=== PATIENT | female | born 1935 | race Caucasian/White ===

== ENCOUNTER 2016-11-29 13:28 | Observation (INO) ==
[2016-11-29] MEDS ORDERED: MAGNESIUM SULF RIDER 2 GM in PREMIX 1 EACH IV PRN (14:15)
[2016-11-29] MEDS ORDERED: ONDANSETRON 4 MG/2 ML VIAL IV PRN (14:15)
[2016-11-29] MEDS ORDERED: ACETAMINOPHEN 325 MG TABLET PO PRN (14:15)
[2016-11-29] MEDS ORDERED: MAGNESIUM SULF RIDER 4 GM in PREMIX 1 EACH IV PRN (14:15)
[2016-11-29] MEDS ORDERED: ZALEPLON 5 MG CAPSULE PO PRN (14:15)
[2016-11-29] MEDS ORDERED: DOCUSATE SODIUM 100 MG CAPSULE PO PRN (14:15)
[2016-11-29 16:23] LABS: Basophils # 0.1 10*3/uL (0.0-0.2); Basophils % 0.7 % (0.0-0.8); Eosinophils # 0.1 10*3/uL (0.0-0.87); Eosinophils % 1.4 % (0.00-10.9); Hematocrit 34.3 VOL% (35.7-47.0); Hemoglobin 11.4 GM/DL (12.0-16.0); Immature Granulocytes % 0.5 %; Immature Granulocytes Absolute 0.04 #; Lymphocytes % 13.1 % (21.3-54.2); Mean Corpuscular HGB Conc 33.2 GM/DL (32-36); Mean Corpuscular Hemoglobin 28 PG (27-34); Mean Corpuscular Volume 84.3 FL (87-102); Mean Platelet Volume 10.7 FL (9.6-12.0); Monocytes # 0.4 10*3/uL (0.11-0.8); Monocytes % 4.8 % (1.7-12.7); Neutrophils # 5.8 10*3/uL (1.4-7.4); Neutrophils % 79.5 % (38.7-73.9); Platelet Count 128 T/CUMM (130-400); Red Blood Count 4.07 MC/CUMM (3.8-5.5); White Blood Count 7.3 T/CUMM (4-12)
[2016-11-29 16:42] LABS: Albumin 3.4 G/DL (3.4-5.0); Bilirubin,Total 0.7 MG/DL (0.2-1.0); Calcium 8.3 MG/DL (8.5-10.1); Osmolality,Calculated 287.4 MOS/KG (273-304); Total Protein 6.6 G/DL (6.4-8.3)
--- NOTE | 2016-11-29 16:51 | Cardiology History & Physical ---
<Sharlene Arreola E - Last Filed: 11/29/16 17:00> Assessment and Plan - Time spent with patient Time spent with patient: Greater than 30 minutes (1) Diabetes mellitus Status: Chronic Assessment and plan: See plan of care listed below Current Visit: No (2) Coronary artery disease Status: Chronic Assessment and plan: See plan of care listed below Current Visit: No Qualifiers: Coronary Disease-Associated Artery/Lesion type: [place] artery [place] vs. transplanted heart: mo[place]gan heart (3) Dyslipidemia Status: Chronic Assessment and plan: See plan of care listed below Current Visit: No (4) Hypertension Status: Chronic Assessment and plan: See plan of care listed below Current Visit: No (5) Pulmonary hypertension Status: Chronic Assessment and plan: See plan of care listed below Current Visit: No (6) Status post insertion of drug-eluting stent into left anterior descending ( LAD) artery for coronary artery disease Status: Chronic Assessment and plan: See plan of care listed below Current Visit: No (8) Atrial fibrillation with rapid ventricular response Status: Resolved Assessment and plan: See plan of care listed below Current Visit: No History of Present Illness Chief complaint: Atrial fibrillation with rapid ventricular response History of present illness: 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 Levy Ms. Farias, 81-year-old female, routinely followed by Dr. Levy. She was last seen in cardiology clinic November 08, 2016. Risk factors include: Known coronary artery disease (status post PCI to the proximal LAD October 24, 2016 with ARELY), hypertension, dyslipidemia, sedentary lifestyle. She has a history of pulmonary hypertension, atrial flutter, anemia. She is status post permanent pacemaker implantation. She has been maintained on aspirin 81 mg daily, Plavix and Coumadin 4 mg orally each evening. Patient presented to her primary care provider's office today with complaints of worsening shortness of breath. She was found to be in atrial fibrillation with rapid ventricular response. She was given IV Cardizem and transferred to our facility. Her rhythm has now converted back to regular sinus rhythm with a controlled rate. Initially, after her stent in October 2016, she felt better for approximately 2 weeks. She states that her breathing improved for about 2 weeks but she is chronically short of breath with exertion and certainly this is worsened over the past week. This afternoon, she did experience chest discomfort described as tightness across the mid chest area without radiation. This was occurring when her heart rate was severely tachycardic and resolved once the rate was controlled. We have ordered cardiac biomarkers and will continue cycle accordingly. At this time, will stop her IV Cardizem 30 minutes after initiating oral diltiazem 30 mg 4 times daily. I will hold her Norvasc and JUAN inhibitor in favor of a rate controlling agent but hope to incorporate an JUAN inhibitor prior to discharge. I will hold her Coumadin tonight only and restart tomorrow depending on patient's progress. At one point, we consider the possibility of cardiac catheterization in her future but her symptoms have resolved once her rate has improved. Therefore, will hold tonight and hopefully be able to restart tomorrow. Await INR results. Continue with IV diuretics, strict I&O. ASSESSMENT/PLAN: 1. ATRIAL FIBRILLATION WITH RVR -paroxysmal. Now back in normal sinus rhythm. See plan of care listed above 2. KNOWN CAD S/P PCI LAD OCTOBER 24, 2016 -continue triple antiplatelet therapy. History of anemia we will monitor her hemoglobin and hematocrit closely. 3. HYPERTENSION -adequately controlled. 4. DYSLIPIDEMIA -continue lipid-lowering agent. Recent fasting lipid profile therefore we will not repeat during this hospital stay 5. DIABETES - sliding scale coverage 6. ANEMIA -monitor closely. Appears to be stable at this time. Home Medications Medication Instructions Recorded Confirmed Type Levothyroxine Tab [Synthroid Tab] 100 mcg PO DAILY 03/24/15 11/29/16 History Insulin Detemir [Levemir] 35 unit SUBCUT BEDTIME 09/12/16 11/29/16 History Mirabegron [Myrbetriq] 25 mg PO DAILY 09/12/16 11/29/16 History sitaGLIPtin [Januvia] 100 mg PO DAILY 09/12/16 11/29/16 History Warfarin [Coumadin] 4 mg PO DAILY 09/13/16 11/29/16 History Colestipol [Colestid] 2 gm PO BID 10/24/16 11/29/16 History Metoprolol Tartrate 25 mg PO BID 10/24/16 11/29/16 History Aspirin EC Tab 81 mg PO DAILY #30 tablet 10/26/16 11/29/16 Rx Atorvastatin [Lipitor] 40 mg PO BEDTIME #30 tablet 10/26/16 11/29/16 Rx Clopidogrel [Plavix] 75 mg PO DAILY #30 tablet 10/26/16 11/29/16 Rx Pantoprazole Tab [Protonix Tab] 40 mg PO DAILY #30 tablet 10/26/16 11/29/16 Rx Ferrous Sulfate 325 mg PO DAILY 11/29/16 11/29/16 History Magnesium Oxide 400 mg PO BID 11/29/16 11/29/16 History Furosemide Tab [Lasix Tab] 40 mg PO DAILY #30 tablet 11/30/16 Rx Glimepiride 4 mg PO BID 11/30/16 11/30/16 History Levofloxacin Tab [Levaquin Tab] 500 mg PO DAILY #6 tablet 11/30/16 Rx dilTIAZem HCl [Diltiazem ER (24 120 mg PO DAILY #30 capsule 11/30/16 Rx hr)] Allergies Allergy/AdvReac Type Severity Reaction Status Date / Time adhesive tape Allergy Intermediate RASH Verified 10/24/16 06:26 cephalexin [From Keflex] Allergy Diarrhea Verified 10/24/16 06:26 pioglitazone [From Actos] Allergy Diarrhea Verified 10/24/16 06:26 codeine AdvReac Intermediate Vomiting Verified 10/24/16 06:26 morphine AdvReac Intermediate Vomiting Verified 10/24/16 06:26 Review of systems: REVIEW OF SYSTEMS: - Constitutional Constitutional: Present: Fatigue. Absent: syncope, anorexia, night sweats - EENT Eyes: Absent: blurry vision, loss of vision, diplopia Ears: Absent: decreased hearing, ear pain, ear discharge - Cardiovascular Cardiovascular: Present: chest pain with higher heart rates. Chronic dyspnea on exertion, occasional edema. Denies palpitations. Absent: chest pain with deep breath, claudication - Respiratory Respiratory: Present: TRUJILLO, denied cough. Absent: wheezing, hemoptysis, change in phlegm color - Gastrointestinal Gastrointestinal: Denies constipation. Absent: abdominal pain, hematemesis, hematochezia, melena, change in bowel habits, nausea - Genitourinary Genitourinary: Absent: difficulty urinating, dysuria, urinary hesitancy, flank pain - Musculoskeletal Musculoskeletal: Present: back pain Absent: joint swelling, muscle cramps, muscle weakness - Neurological Neurological: Present: normal gait without frequent falls. Absent: dizziness, hemiparesis - Psychiatric Psychiatric: Absent: anxiety, depression, difficulty concentrating - Endocrine Endocrine: Present: fatigue. Absent: cold intolerance, heat intolerance, polyuria, polyphagia, polydipsia - Hematologic/Lymphatic Hematologic/Lymphatic: Present: easy bruising. Absent: easy bleeding -Integumentary Integumentary: Absent: lesions, rashes, skin breakdown Medical,Surgical,& Family Hx - Medical History Cardio: History of: Cardiac Dysrhythmia (atrial fib), CAD, Hypertension, Pacemaker (type unknown placed by Dr. Avelar at [facility]) Neurology: No history of: Seizures HEENT: History of: Ear Problem (hard of hearing), HEENT Problems (bilateral cataract) Endocrine: History of: Diabetes Mellitus (IDDM), Thyroid Disorder ( hypothyroidism) No history of: Diabetes Mellitus (NIDDM) Respiratory: History of: Bronchitis, Obstructive Sleep Apnea (doesnt use Cpap), Pulmonary Hypertension Genitourinary: History of: Bladder Problem (has had Bladder surgery), Recurring Urinary Tract Infections (frequent bladder infections), Problems (Bladder mesh) Gastrointestinal: History of: GERD, Hemorrhoids, GI Problems (diarrhea, dysphagia) Musculoskeletal: History of: Back/Neck Problems (arthritis) Hematology: History of: Anemia No history of: Blood Transfusion Reaction Reproductive: History of: Breast Cancer (right mastectomy-2004) Other: History of: Cancer (breast cancer) No history of: Anesthesia Reactions - Surgical History Cardiac Surgeries: Sugical HX of: Cardiac Catheterization Patient Denies: Carotid Endarterectomy HEENT Surgeries: Surgical HX of: Eye Surgery (cataracts), Thyroid Surgery (lt. thyroid) Patient denies: Carotid Endarterectomy Abdominal Surgeries: Surgical HX of: Appendectomy, Cholecystectomy, Colonoscopy , EGD Reproductive Surgeries: Surgical HX of;: Breast Surgery (rt. mastectomy), Genitourinary Surgery (bladder tack), Hysterectomy Orthopedic Surgeries: Patient denies;: Orthopedic Surgery - Family History Family History: Reports;: Family Cancer (father), Family Diabetes (grandmother) , Family Heart Disease (mother ([place]), Father), Family Hypertension (Father, Mother, Son), Family Stroke (Mother) - Social History Smoking Status: Never smoker Frequency of Alcohol Use: None Type of Drug Use: None Marital Status: Lives With:: Spouse Functional capacity: independent ambulation Cardiology Physical Exam - Constitutional Vitals: Vital Signs Temp Pulse Resp BP Pulse Ox 98.2 F 135 H 20 102/68 96 11/29/16 15:25 11/29/16 15:25 11/29/16 15:41 11/29/16 15:25 11/29/16 15:25 Intake and Output 11/29/16 11/29/16 11/29/16 07:59 15:59 23:59 Other: Weight 81.647 kg Patient Weight 11/29/16 23:59 Weight 81.647 kg Exam: General: [Appears well with no apparent distress.] [Pleasant and cooperative. ] [Appears comfortable.] HEENT: [PERRL, normocephalic, atraumatic. Mucous membranes moist. No jaundice noted. Conjunctiva moist and clear, sclerae anicteric] Neck: No obvious JVD/HJR, no thyromegaly or lymphadenopathy noted. No carotid bruit appreciated Cardiac: [Irregularly irregular in a trigeminal pattern] [No obvious murmur rub or gallop.] Lungs: [Relatively clear with prolonged end expiratory expression] Oxygen in use via nasal cannula Abdomen: Soft, bowel sounds normoactive. Nontender and nondistended. No abdominal bruit or thrill noted. No masses noted. Musculoskeletal: No fluid collection. Decreased range of motion is noted. Extremities: No clubbing, cyanosis noted. [TEDs intact. Trace bilateral lower extremity edema. Tender to touch] Upper extremity pulses 2+. Lower extremity pulses 2+. Capillary refill less than 3 seconds. Skin: No unusual lesions or rashes. No skin breakdown appreciated. Neuro: Awake, alert and oriented 3. Moves all extremities well without hemiparesis or paralysis. No essential tremor is appreciated. Result/EKG - Labs CBC & BMP: 11/29/16 15:47 11/29/16 15:44 Lab Results: I have reviewed the past 24 hour labs Labs: Laboratory Results - last 24 hr 11/29/16 15:47 WBC 7.3 RBC 4.07 Hgb 11.4 L Hct 34.3 L MCV 84.3 L MCH 28 MCHC 33.2 RDW 14.0 Plt Count 128 L MPV 10.7 Neut % (Auto) 79.5 H Lymph % (Auto) 13.1 L Gilchrist % (Auto) 4.8 Eos % (Auto) 1.4 Baso % (Auto) 0.7 Neut # (Auto) 5.8 Lymph # (Auto) 1.0 L Gilchrist # (Auto) 0.4 Eos # (Auto) 0.1 Baso # (Auto) 0.1 Immature Gran % 0.5 Nucleated RBC % 0.0 Immature Gran # 0.04 Nucleated RBCs # 0.00 - Diagnostic Findings Procedure: Chest x-ray: report reviewed by me - EKG EKG results: interpreted by me EKG shows: sinus rhythm <Hina Quiroga - Last Filed: 11/30/16 14:39> History of Present Illness History of present illness: I have personally interviewed and evaluated the patient, reviewed the chart and discussed medical decision-making with Practitioner Maxwell. I have read this note and agree with her documentation here in. Cardiology Physical Exam - Constitutional Vitals: Vital Signs Temp Pulse Resp BP Pulse Ox 97.0 F L 61 16 135/47 97 11/30/16 12:00 11/30/16 13:56 11/30/16 13:56 11/30/16 12:00 11/30/16 13:56 Intake and Output 11/29/16 11/30/16 11/30/16 23:59 07:59 15:59 Intake Total 240 / 240 240 / 240 Output Total 400 / 400 200 / 200 Balance -160 / -160 40 / 40 Intake: Oral 240 / 240 240 / 240 Output: Urine 400 / 400 200 / 200 Other: Weight 81.647 kg Patient Weight 11/30/16 23:59 Weight 81.647 kg Result/EKG - Labs CBC & BMP: 11/30/16 07:13 11/30/16 07:13 Labs: Laboratory Results - last 24 hr 11/29/16 11/29/16 11/29/16 15:44 15:44 15:44 WBC RBC Hgb Hct MCV MCH MCHC RDW Plt Count MPV Neut % (Auto) Lymph % (Auto) Gilchrist % (Auto) Eos % (Auto) Baso % (Auto) Neut # (Auto) Lymph # (Auto) Gilchrist # (Auto) Eos # (Auto) Baso # (Auto) Immature Gran % Nucleated RBC % Immature Gran # Nucleated RBCs # INR 2.0 PT Patient/Control Mix 22.3 D Sodium 140 Potassium 3.0 L Chloride 102 Carbon Dioxide 29 Anion Gap 12.0 BUN 10 Creatinine 0.80 GFR Calculation 76 BUN/Creatinine Ratio 12.00 Glucose 277 H POC Glucose Calculated Osmolality 287.4 Calcium 8.3 L Magnesium Total Bilirubin 0.70 AST 12 ALT 13 Alkaline Phosphatase 68 Total Creatine Kinase CK-MB (CK-2) Troponin I B-Natriuretic Peptide Total Protein 6.6 Albumin 3.4 Globulin 3.2 Albumin/Globulin Ratio 1.0 L Triglycerides 157 H Cholesterol 94 LDL Cholesterol 38.0 VLDL Cholesterol 31.4 HDL Cholesterol 42 Heart Disease Risk Ratio 2.24 Free T4 TSH 3rd Generation Urine Color Urine Appearance Urine pH Ur Specific [place] Urine Protein Urine Glucose (UA) Urine Ketones Urine Blood Urine Nitrate Urine Bilirubin Urine Urobilinogen Urine Leukocytes Urine WBC Ur Squamous Epith Cells Ur Culture Indicated? 11/29/16 11/29/16 11/29/16 15:44 15:45 15:47 WBC 7.3 RBC 4.07 Hgb 11.4 L Hct 34.3 L MCV 84.3 L MCH 28 MCHC 33.2 RDW 14.0 Plt Count 128 L MPV 10.7 Neut % (Auto) 79.5 H Lymph % (Auto) 13.1 L Gilchrist % (Auto) 4.8 Eos % (Auto) 1.4 Baso % (Auto) 0.7 Neut # (Auto) 5.8 Lymph # (Auto) 1.0 L Gilchrist # (Auto) 0.4 Eos # (Auto) 0.1 Baso # (Auto) 0.1 Immature Gran % 0.5 Nucleated RBC % 0.0 Immature Gran # 0.04 Nucleated RBCs # 0.00 INR PT Patient/Control Mix Sodium Potassium Chloride Carbon Dioxide Anion Gap BUN Creatinine GFR Calculation BUN/Creatinine Ratio Glucose POC Glucose Calculated Osmolality Calcium Magnesium Total Bilirubin AST ALT Alkaline Phosphatase Total Creatine Kinase 82 CK-MB (CK-2) 1.6 Troponin I 0.018 B-Natriuretic Peptide Total Protein Albumin Globulin Albumin/Globulin Ratio Triglycerides Cholesterol LDL Cholesterol VLDL Cholesterol HDL Cholesterol Heart Disease Risk Ratio Free T4 1.50 H TSH 3rd Generation 1.120 Urine Color Urine Appearance Urine pH Ur Specific [place] Urine Protein Urine Glucose (UA) Urine Ketones Urine Blood Urine Nitrate Urine Bilirubin Urine Urobilinogen Urine Leukocytes Urine WBC Ur Squamous Epith Cells Ur Culture Indicated? 11/29/16 11/29/16 11/29/16 15:47 19:00 19:15 WBC RBC Hgb Hct MCV MCH MCHC RDW Plt Count MPV Neut % (Auto) Lymph % (Auto) Gilchrist % (Auto) Eos % (Auto) Baso % (Auto) Neut # (Auto) Lymph # (Auto) Gilchrist # (Auto) Eos # (Auto) Baso # (Auto) Immature Gran % Nucleated RBC % Immature Gran # Nucleated RBCs # INR PT Patient/Control Mix Sodium Potassium Chloride Carbon Dioxide Anion Gap BUN Creatinine GFR Calculation BUN/Creatinine Ratio Glucose POC Glucose 330 H Calculated Osmolality Calcium Magnesium Total Bilirubin AST ALT Alkaline Phosphatase Total Creatine Kinase CK-MB (CK-2) Troponin I B-Natriuretic Peptide 425 H Total Protein Albumin Globulin Albumin/Globulin Ratio Triglycerides Cholesterol LDL Cholesterol VLDL Cholesterol HDL Cholesterol Heart Disease Risk Ratio Free T4 TSH 3rd Generation Urine Color Yellow Urine Appearance Clear Urine pH 7.0 Ur Specific [place] 1.021 Urine Protein Negative Urine Glucose (UA) >=500 Urine Ketones Negative Urine Blood Negative Urine Nitrate Negative Urine Bilirubin Negative Urine Urobilinogen < 2.0 H Urine Leukocytes Negative Urine WBC 1 Ur Squamous Epith Cells Occasional Ur Culture Indicated? Not indicated 11/29/16 11/30/16 11/30/16 22:01 01:02 01:19 WBC RBC Hgb Hct MCV MCH MCHC RDW Plt Count MPV Neut % (Auto) Lymph % (Auto) Gil[place] % (Auto) Eos % (Auto) Baso % (Auto) Neut # (Auto) Lymph # (Auto) [place] # (Auto) Eos # (Auto) Baso # (Auto) Immature Gran % Nucleated RBC % Immature Gran # Nucleated RBCs # INR PT Patient/Control Mix Sodium Potassium Chloride Carbon Dioxide Anion Gap BUN Creatinine GFR Calculation BUN/Creatinine Ratio Glucose POC Glucose 60 L 111 H Calculated Osmolality Calcium Magnesium Total Bilirubin AST ALT Alkaline Phosphatase Total Creatine Kinase 73 CK-MB (CK-2) 1.6 Troponin I 0.123 H D B-Natriuretic Peptide Total Protein Albumin Globulin Albumin/Globulin Ratio Triglycerides Cholesterol LDL Cholesterol VLDL Cholesterol HDL Cholesterol Heart Disease Risk Ratio Free T4 TSH 3rd Generation Urine Color Urine Appearance Urine pH Ur Specific [place] Urine Protein Urine Glucose (UA) Urine Ketones Urine Blood Urine Nitrate Urine Bilirubin Urine Urobilinogen Urine Leukocytes Urine WBC Ur Squamous Epith Cells Ur Culture Indicated? 11/30/16 11/30/16 11/30/16 07:13 07:13 07:13 WBC 7.2 RBC 3.83 Hgb 10.8 L Hct 33.0 L MCV 86.2 L MCH 28 MCHC 32.7 RDW 14.4 Plt Count 135 MPV 10.7 Neut % (Auto) 75.2 H Lymph % (Auto) 16.8 L Gilchrist % (Auto) 4.8 Eos % (Auto) 2.1 Baso % (Auto) 0.4 Neut # (Auto) 5.4 Lymph # (Auto) 1.2 L Gilchrist # (Auto) 0.3 Eos # (Auto) 0.2 Baso # (Auto) 0.0 Immature Gran % 0.7 Nucleated RBC % 0.0 Immature Gran # 0.05 Nucleated RBCs # 0.00 INR PT Patient/Control Mix Sodium 139 Potassium 4.2 Chloride 103 Carbon Dioxide 30 Anion Gap 10.2 BUN 9 Creatinine 0.70 GFR Calculation 89 BUN/Creatinine Ratio 12.00 Glucose 213 H POC Glucose Calculated Osmolality 281.5 Calcium 8.8 Magnesium Total Bilirubin 0.80 AST 10 ALT 12 L Alkaline Phosphatase 66 Total Creatine Kinase CK-MB (CK-2) Troponin I B-Natriuretic Peptide 435 H Total Protein 6.5 Albumin 3.3 L Globulin 3.2 Albumin/Globulin Ratio 1.0 L Triglycerides Cholesterol LDL Cholesterol VLDL Cholesterol HDL Cholesterol Heart Disease Risk Ratio Free T4 TSH 3rd Generation Urine Color Urine Appearance Urine pH Ur Specific [place] Urine Protein Urine Glucose (UA) Urine Ketones Urine Blood Urine Nitrate Urine Bilirubin Urine Urobilinogen Urine Leukocytes Urine WBC Ur Squamous Epith Cells Ur Culture Indicated? 11/30/16 11/30/16 11/30/16 07:13 07:13 07:13 WBC RBC Hgb Hct MCV MCH MCHC RDW Plt Count MPV Neut % (Auto) Lymph % (Auto) [place] % (Auto) Eos % (Auto) Baso % (Auto) Neut # (Auto) Lymph # (Auto) [place] # (Auto) Eos # (Auto) Baso # (Auto) Immature Gran % Nucleated RBC % Immature Gran # Nucleated RBCs # INR 1.9 PT Patient/Control Mix 21.1 Sodium 141 Potassium 4.2 Chloride 104 Carbon Dioxide 31 Anion Gap 10.2 BUN 9 Creatinine 0.70 GFR Calculation 89 BUN/Creatinine Ratio 12.00 Glucose 215 H POC Glucose Calculated Osmolality 285.3 Calcium 8.5 Magnesium 2.1 Total Bilirubin AST ALT Alkaline Phosphatase Total Creatine Kinase 51 D CK-MB (CK-2) 1.4 Troponin I 0.146 H B-Natriuretic Peptide Total Protein Albumin Globulin Albumin/Globulin Ratio Triglycerides Cholesterol LDL Cholesterol VLDL Cholesterol HDL Cholesterol Heart Disease Risk Ratio Free T4 TSH 3rd Generation Urine Color Urine Appearance Urine pH Ur Specific [place] Urine Protein Urine Glucose (UA) Urine Ketones Urine Blood Urine Nitrate Urine Bilirubin Urine Urobilinogen Urine Leukocytes Urine WBC Ur Squamous Epith Cells Ur Culture Indicated? 11/30/16 11/30/16 07:28 11:41 WBC RBC Hgb Hct MCV MCH MCHC RDW Plt Count MPV Neut % (Auto) Lymph % (Auto) [place] % (Auto) Eos % (Auto) Baso % (Auto) Neut # (Auto) Lymph # (Auto) [place] # (Auto) Eos # (Auto) Baso # (Auto) Immature Gran % Nucleated RBC % Immature Gran # Nucleated RBCs # INR PT Patient/Control Mix Sodium Potassium Chloride Carbon Dioxide Anion Gap BUN Creatinine GFR Calculation BUN/Creatinine Ratio Glucose POC Glucose 214 H 238 H Calculated Osmolality Calcium Magnesium Total Bilirubin AST ALT Alkaline Phosphatase Total Creatine Kinase CK-MB (CK-2) Troponin I B-Natriuretic Peptide Total Protein Albumin Globulin Albumin/Globulin Ratio Triglycerides Cholesterol LDL Cholesterol VLDL Cholesterol HDL Cholesterol Heart Disease Risk Ratio Free T4 TSH 3rd Generation Urine Color Urine Appearance Urine pH Ur Specific [place] Urine Protein Urine Glucose (UA) Urine Ketones Urine Blood Urine Nitrate Urine Bilirubin Urine Urobilinogen Urine Leukocytes Urine WBC Ur Squamous Epith Cells Ur Culture Indicated?
[2016-11-29 16:55] LABS: Risk Ratio 2.24; VLDL CHOLESTEROL 31.4 MG/DL
[2016-11-29] MEDS ORDERED: POTASSIUM CHLORIDE 20 MEQ TABLET PO ONE (16:58)
[2016-11-29] MEDS ORDERED: DEXTROSE 50% 25 GM/50 ML VIAL IV PRN (17:08)
[2016-11-29] MEDS ORDERED: GLUCAGON 1 MG VIAL IM PRN (17:08)
[2016-11-29 17:15] LABS: PT Patient Result 22.3 SECS
[2016-11-29] MEDS: glyBURIDE 5 MG TABLET PO SCH (17:24)
[2016-11-29] MEDS: DILTIAZEM 30 MG TABLET PO SCH ×2 (17:25→21:35)
[2016-11-29 17:26] LABS: Free T4 (Free Thyroxine) 1.5 NG/DL (0.76-1.46); Thyroid Stimulating Hormone 1.12 uIU/ml (0.358-3.74)
[2016-11-29 17:57] LABS: Troponin I Only 0.018 NG/ML (0.00-0.045)
--- NOTE | 2016-11-29 19:33 | Ultrasound Report ---
History: Leg pain Date: 11/29/2016 Study: Bilateral lower extremity color-flow venous Doppler study Comparison exam: No previous similar Color Doppler, wave form analysis, and compression analysis of the deep veins of both lower extremities from the common femoral vein level through the popliteal vein level shows that the veins are readily compressible. There is no abnormal intraluminal material to suggest thrombus. Waveform analysis is unremarkable. Ultrasound images were captured and archived Impression: No evidence of acute DVT PROCEDURE INTERPRETED AT [facility] DEPARTMENT OF RADIOLOGY Final Report Signed by: Dr. Patricia Chavez
[2016-11-29 19:41] LABS: Apearance,Urine CLEAR (Clear); Bilirubin,Urine Negative (Negative); Blood, Urine Negative (Negative); Glucose,Urine (UA) >=500 mg/dL (Negative); Ketones,Urine Negative (Negative); Nitrite,Urine Negative (Negative); Protein,Urine Negative; Squamous Epithelial Cell,Urine Occasional /HPF (0-10); Urine Color Yellow (Yellow); Urine Specific Gravity 1.021 (1.001-1.035); Urine Urobilinogen < 2.0 EU/DL (0.2-1.0); WBC,Urine 1 /HPF (0-6)
[2016-11-29] MEDS ORDERED: INSULIN GLARGINE 100 UNIT/ML SUBCUT SCH (21:00)
[2016-11-29] MEDS ORDERED: ATORVASTATIN 40 MG TABLET PO SCH (21:00)
[2016-11-29] MEDS: FUROSEMIDE 20 MG TABLET PO SCH (21:34)
[2016-11-29] MEDS: COLESTIPOL 1 GM TABLET PO SCH (21:34)
[2016-11-29] MEDS: INSULIN REGULAR 100 UNIT/ML SUBCUT SCH (21:35)
[2016-11-29] MEDS: METOPROLOL TARTRATE 25 MG TABLET PO SCH (21:35)
[2016-11-29] MEDS: MAGNESIUM OXIDE 400 MG TABLET PO SCH (21:35)
[2016-11-29 22:54] LABS: Troponin I Only 0.123 NG/ML (0.00-0.045)
[2016-11-30] MEDS ORDERED: LEVOTHYROXINE 100 MCG TABLET PO SCH (07:00)
--- NOTE | 2016-11-30 07:24 | XRay Report ---
XR chest 1V portable Indication: Shortness of breath Comparison: Chest x-ray 10/24/2016 Technique: Portable AP chest was performed. Findings: The heart size appears stable compared to prior study. Cardiac pacemaker is stable. The mediastinal contour and hilar structures demonstrate no significant abnormalities. Suggests minimal airspace opacification of the left costophrenic angle with stranding noted in the left cardiophrenic angle, stable. Lungs otherwise are clear. Bones and soft tissues demonstrate no evidence of acute pathology. Impression: 1. Minimally worsened parenchymal opacities within the left lung base have differential considerations including atelectasis as well as infection. Little overall change in the chest is demonstrated. 11/30/2016 7:20 AM PROCEDURE INTERPRETED AT [facility] DEPARTMENT OF RADIOLOGY Final Report Signed by: Dr. Saurabh Strange
[2016-11-30 07:36] LABS: Basophils % 0.4 % (0.0-0.8); Eosinophils # 0.2 10*3/uL (0.0-0.87); Eosinophils % 2.1 % (0.00-10.9); Hemoglobin 10.8 GM/DL (12.0-16.0); Immature Granulocytes % 0.7 %; Immature Granulocytes Absolute 0.05 #; Lymphocytes # 1.2 10*3/uL (1.4-4.0); Lymphocytes % 16.8 % (21.3-54.2); Mean Corpuscular HGB Conc 32.7 GM/DL (32-36); Mean Corpuscular Hemoglobin 28 PG (27-34); Mean Corpuscular Volume 86.2 FL (87-102); Mean Platelet Volume 10.7 FL (9.6-12.0); Monocytes # 0.3 10*3/uL (0.11-0.8); Monocytes % 4.8 % (1.7-12.7); Neutrophils # 5.4 10*3/uL (1.4-7.4); Neutrophils % 75.2 % (38.7-73.9); Platelet Count 135 T/CUMM (130-400); Red Blood Count 3.83 MC/CUMM (3.8-5.5); Red Cell Distribution Width 14.4 % (9.3-17.3); White Blood Count 7.2 T/CUMM (4-12)
[2016-11-30 07:50] LABS: INR 1.9
[2016-11-30 07:52] LABS: PT Patient Result 21.1 SECS
--- NOTE | 2016-11-30 08:01 | EKG Report ---
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
[2016-11-30 08:07] LABS: Calcium 8.5 MG/DL (8.5-10.1); Magnesium 2.1 MG/DL (1.8-2.4); Osmolality,Calculated 285.3 MOS/KG (273-304); Potassium 4.2 MMOL/L (3.5-5.1)
[2016-11-30 08:12] LABS: Troponin I Only 0.146 NG/ML (0.00-0.045)
[2016-11-30 08:19] LABS: Albumin 3.3 G/DL (3.4-5.0); Bilirubin,Total 0.8 MG/DL (0.2-1.0); Calcium 8.8 MG/DL (8.5-10.1); Osmolality,Calculated 281.5 MOS/KG (273-304); Potassium 4.2 MMOL/L (3.5-5.1); Total Protein 6.5 G/DL (6.4-8.3)
[2016-11-30] MEDS: COLESTIPOL 1 GM TABLET PO SCH (08:45)
[2016-11-30] MEDS: DILTIAZEM 30 MG TABLET PO SCH ×2 (08:45→14:31)
[2016-11-30] MEDS: FUROSEMIDE 20 MG TABLET PO SCH (08:45)
[2016-11-30] MEDS: METOPROLOL TARTRATE 25 MG TABLET PO SCH (08:46)
[2016-11-30] MEDS: MAGNESIUM OXIDE 400 MG TABLET PO SCH (08:46)
[2016-11-30] MEDS: INSULIN REGULAR 100 UNIT/ML SUBCUT SCH ×2 (08:46→12:10)
[2016-11-30] MEDS ORDERED: ASPIRIN EC 81 MG TABLET PO SCH (09:00)
[2016-11-30] MEDS ORDERED: GLIMEPIRIDE 4 MG TABLET PO SCH (09:00)
[2016-11-30] MEDS ORDERED: FERROUS SULFATE 325 MG TABLET PO SCH (09:00)
[2016-11-30] MEDS ORDERED: sitaGLIPtin 100 MG TABLET PO SCH (09:00)
[2016-11-30] MEDS ORDERED: PANTOPRAZOLE 40 MG TABLET PO SCH (09:00)
[2016-11-30] MEDS ORDERED: CLOPIDOGREL 75 MG TABLET PO SCH (09:00)
[2016-11-30] MEDS: glyBURIDE 5 MG TABLET PO SCH (10:01)
[2016-11-30] MEDS ORDERED: FUROSEMIDE 40 MG/4 ML VIAL IV SCH (10:33)
[2016-11-30] MEDS: LEVALBUTEROL 0.63 MG/3 ML NEB RESP TX SCH ×2 (10:39→13:56)
[2016-11-30] MEDS ORDERED: LEVOFLOXACIN INJ 500 MG in PREMIX 1 EACH IV SCH (11:00)
[2016-11-30 12:25] VITALS: BP 135/47
--- NOTE | 2016-11-30 14:04 | Discharge Summary ---
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 Farias, 81WF, arrived to the emergency apartment in transfer from an outlying facility. She sought emergency advice for worsening shortness of breath. She was found to be in atrial fibrillation with rapid ventricular response, 150 -170 bpm. Blood pressure was unstable and she was given fluid challenges while in the ER to improve her hypotension and tachycardia. Diltiazem infusion was initiated and her heart rate came under better control. She was hospitalized overnight for IV calcium channel caitlin. She spontaneously converted to normal sinus rhythm and was transitioned to oral calcium channel caitlin. She remained in normal sinus rhythm the remainder of the hospital stay. She has been maintained on aspirin 81 mg daily, Plavix and Coumadin 4 mg orally each evening. (INR 1.9) Chest x-ray revealed possible infectious process this morning though her white blood cell count was normal and she is afebrile. She received IV Levaquin is being and is being discharged home on oral Levaquin 6 days. She diuresed well after Lasix. She had some chest discomfort when her rates were higher but once her heart rate came under control she had no additional chest discomfort. Troponins remain flat. This morning, she has been ambulating without chest pain, heaviness or tightness. Shortness of breath has resolved. She is anxious for release home today. She is being discharged home in stable condition. She will be given a follow-up appointment with Dr. Rios in approximately 2-3 weeks with EKG. She is being given an appointment for lab at [facility] in 1 week to include the following: PT/INR, BMP, magnesium, CBC. Discharge medications include the following: Aspirin 81 mg orally daily Atorvastatin 40 mg orally each evening Clopidogrel 75 mg orally daily Luis 2 g p.o. twice daily Diltiazem ER 120 mg orally daily (new) Ferrous sulfate 325 mg orally daily Lasix 40 mg orally daily Levaquin 500 mg orally daily 6 days Levothyroxine 100 g orally daily Magnesium oxide 400 mg orally twice daily Metoprolol tartrate 25 mg orally twice daily Januvia 100 mg orally daily Warfarin 4 mg orally each evening She will resume her pre-admission diabetic regimen as well Patient's ARB was held in favor of rate controlling agent. - Time spent with patient Time with patient DS: Greater than 30 minutes Diagnosis - Discharge Diagnosis (1) Diabetes mellitus Status: Chronic (2) Coronary artery disease Status: Chronic (3) Dyslipidemia Status: Chronic (4) Hypertension Status: Chronic (5) Pulmonary hypertension Status: Chronic (6) Status post insertion of drug-eluting stent into left anterior descending ( LAD) artery for coronary artery disease Status: Chronic (7) Atrial fibrillation with rapid ventricular response Status: Chronic Specialty Discharge - Follow Up or Referrals Follow up with: Margret Rios DO [Physician] - 2 Weeks (PT/INR, BMP, Mg, CBC 1 week at [facility]. F/U Dr. Rios 2-3 weeks with EKG. ) Discharge Plan - Discharge Data Disposition: Disch To Home/Self Care Condition at Discharge: Stable Discharge Diet: heart healthy Activity: resume usual activities as tolerated Hygiene: no restrictions Weight Bearing at Discharge: full weight bearing Driving: not until seen by doctor Contact your physician if you experience:: fever over 101, Difficulty voiding, Redness or swelling, Nausea/Vomiting, Shortness of breath, Bleeding, pain uncontrolled by pain medications - Discharge Medications New Furosemide Tab [Lasix Tab] 40 mg PO DAILY #30 tablet Levofloxacin Tab [Levaquin Tab] 500 mg PO DAILY #6 tablet dilTIAZem HCl [Diltiazem ER (24 hr)] 120 mg PO DAILY #30 capsule Continue Levothyroxine Tab [Synthroid Tab] 100 mcg PO DAILY sitaGLIPtin [Januvia] 100 mg PO DAILY Metoprolol Tartrate 25 mg PO BID Clopidogrel [Plavix] 75 mg PO DAILY #30 tablet Atorvastatin [Lipitor] 40 mg PO BEDTIME #30 tablet Magnesium Oxide 400 mg PO BID Mirabegron [Myrbetriq] 25 mg PO DAILY Insulin Detemir [Levemir] 35 unit SUBCUT BEDTIME Warfarin [Coumadin] 4 mg PO DAILY Colestipol [Colestid] 2 gm PO BID Aspirin EC Tab 81 mg PO DAILY #30 tablet Pantoprazole Tab [Protonix Tab] 40 mg PO DAILY #30 tablet Ferrous Sulfate 325 mg PO DAILY Glimepiride 4 mg PO BID Discontinued Losartan [Cozaar] 25 mg PO DAILY #30 tablet amLODIPine [Norvasc] 2.5 mg PO DAILY #30 tablet Furosemide [Furosemide] 20 mg PO BID - Follow Up or Referral Follow Up: Margret Rios DO [Physician] - 2 Weeks (PT/INR, BMP, Mg, CBC 1 week at [facility]. F/U Dr. Rios 2-3 weeks with EKG. ) - Forms/Instructions Exam - Constitutional Vitals: Period Temp Pulse Resp BP Sys/Petty Pulse Ox Last 24 Hr 96.6 F-98.2 F 59-135 16-20 102-149/47-70 94-100 Exam: General: [Appears well with no apparent distress.] [Pleasant and cooperative. ] [Appears comfortable.] HEENT: [PERRL, normocephalic, atraumatic. Mucous membranes moist. No jaundice noted. Conjunctiva moist and clear, sclerae anicteric] Neck: No JVD/HJR, no thyromegaly or lymphadenopathy noted. No carotid bruit appreciated Cardiac: [Regular rate and rhythm.] [No obvious murmur rub or gallop.] . Lungs: [Clear to auscultation without accessory muscle use to assist the respiratory pattern.] Not requiring oxygen Abdomen: Soft, bowel sounds normoactive. Nontender and nondistended. No abdominal bruit or thrill noted. No masses noted. Musculoskeletal: No fluid collection. Decreased range of motion is noted. Extremities: No clubbing, cyanosis noted. [ No edema noted.] Upper extremity pulses 2+. Lower extremity pulses 2+. Capillary refill less than 3 seconds. Skin: No unusual lesions or rashes. No skin breakdown appreciated. Neuro: Awake, alert and oriented 3. Moves all extremities well without hemiparesis or paralysis. No essential tremor is appreciated. Discharge Results Labs on day of discharge: Labs from last 24 hours 11/30/16 11/30/16 11/30/16 11:41 07:28 07:13 WBC RBC Hgb Hct MCV MCH MCHC RDW Plt Count MPV Neut % (Auto) Lymph % (Auto) [place] % (Auto) Eos % (Auto) Baso % (Auto) Neut # (Auto) Lymph # (Auto) [place] # (Auto) Eos # (Auto) Baso # (Auto) Immature Gran % Nucleated RBC % Immature Gran # Nucleated RBCs # INR 1.9 PT Patient/Control Mix 21.1 Sodium Potassium Chloride Carbon Dioxide Anion Gap BUN Creatinine GFR Calculation BUN/Creatinine Ratio Glucose POC Glucose 238 H 214 H Calculated Osmolality Calcium Magnesium Total Bilirubin AST ALT Alkaline Phosphatase Total Creatine Kinase CK-MB (CK-2) Troponin I B-Natriuretic Peptide Total Protein Albumin Globulin Albumin/Globulin Ratio Triglycerides Cholesterol LDL Cholesterol VLDL Cholesterol HDL Cholesterol Heart Disease Risk Ratio Free T4 TSH 3rd Generation Urine Color Urine Appearance Urine pH Ur Specific Myton Urine Protein Urine Glucose (UA) Urine Ketones Urine Blood Urine Nitrate Urine Bilirubin Urine Urobilinogen Urine Leukocytes Urine WBC Ur Squamous Epith Cells Ur Culture Indicated? 11/30/16 11/30/16 11/30/16 07:13 07:13 07:13 WBC RBC Hgb Hct MCV MCH MCHC RDW Plt Count MPV Neut % (Auto) Lymph % (Auto) [place] % (Auto) Eos % (Auto) Baso % (Auto) Neut # (Auto) Lymph # (Auto) [place] # (Auto) Eos # (Auto) Baso # (Auto) Immature Gran % Nucleated RBC % Immature Gran # Nucleated RBCs # INR PT Patient/Control Mix Sodium 141 Potassium 4.2 Chloride 104 Carbon Dioxide 31 Anion Gap 10.2 BUN 9 Creatinine 0.70 GFR Calculation 89 BUN/Creatinine Ratio 12.00 Glucose 215 H POC Glucose Calculated Osmolality 285.3 Calcium 8.5 Magnesium 2.1 Total Bilirubin AST ALT Alkaline Phosphatase Total Creatine Kinase 51 D CK-MB (CK-2) 1.4 Troponin I 0.146 H B-Natriuretic Peptide 435 H Total Protein Albumin Globulin Albumin/Globulin Ratio Triglycerides Cholesterol LDL Cholesterol VLDL Cholesterol HDL Cholesterol Heart Disease Risk Ratio Free T4 TSH 3rd Generation Urine Color Urine Appearance Urine pH Ur Specific [place] Urine Protein Urine Glucose (UA) Urine Ketones Urine Blood Urine Nitrate Urine Bilirubin Urine Urobilinogen Urine Leukocytes Urine WBC Ur Squamous Epith Cells Ur Culture Indicated? 11/30/16 11/30/16 11/30/16 07:13 07:13 01:19 WBC 7.2 RBC 3.83 Hgb 10.8 L Hct 33.0 L MCV 86.2 L MCH 28 MCHC 32.7 RDW 14.4 Plt Count 135 MPV 10.7 Neut % (Auto) 75.2 H Lymph % (Auto) 16.8 L [place] % (Auto) 4.8 Eos % (Auto) 2.1 Baso % (Auto) 0.4 Neut # (Auto) 5.4 Lymph # (Auto) 1.2 L [place] # (Auto) 0.3 Eos # (Auto) 0.2 Baso # (Auto) 0.0 Immature Gran % 0.7 Nucleated RBC % 0.0 Immature Gran # 0.05 Nucleated RBCs # 0.00 INR PT Patient/Control Mix Sodium 139 Potassium 4.2 Chloride 103 Carbon Dioxide 30 Anion Gap 10.2 BUN 9 Creatinine 0.70 GFR Calculation 89 BUN/Creatinine Ratio 12.00 Glucose 213 H POC Glucose 111 H Calculated Osmolality 281.5 Calcium 8.8 Magnesium Total Bilirubin 0.80 AST 10 ALT 12 L Alkaline Phosphatase 66 Total Creatine Kinase CK-MB (CK-2) Troponin I B-Natriuretic Peptide Total Protein 6.5 Albumin 3.3 L Globulin 3.2 Albumin/Globulin Ratio 1.0 L Triglycerides Cholesterol LDL Cholesterol VLDL Cholesterol HDL Cholesterol Heart Disease Risk Ratio Free T4 TSH 3rd Generation Urine Color Urine Appearance Urine pH Ur Specific [place] Urine Protein Urine Glucose (UA) Urine Ketones Urine Blood Urine Nitrate Urine Bilirubin Urine Urobilinogen Urine Leukocytes Urine WBC Ur Squamous Epith Cells Ur Culture Indicated? 11/30/16 11/29/16 11/29/16 01:02 22:01 19:15 WBC RBC Hgb Hct MCV MCH MCHC RDW Plt Count MPV Neut % (Auto) Lymph % (Auto) [place] % (Auto) Eos % (Auto) Baso % (Auto) Neut # (Auto) Lymph # (Auto) [place] # (Auto) Eos # (Auto) Baso # (Auto) Immature Gran % Nucleated RBC % Immature Gran # Nucleated RBCs # INR PT Patient/Control Mix Sodium Potassium Chloride Carbon Dioxide Anion Gap BUN Creatinine GFR Calculation BUN/Creatinine Ratio Glucose POC Glucose 60 L Calculated Osmolality Calcium Magnesium Total Bilirubin AST ALT Alkaline Phosphatase Total Creatine Kinase 73 CK-MB (CK-2) 1.6 Troponin I 0.123 H D B-Natriuretic Peptide Total Protein Albumin Globulin Albumin/Globulin Ratio Triglycerides Cholesterol LDL Cholesterol VLDL Cholesterol HDL Cholesterol Heart Disease Risk Ratio Free T4 TSH 3rd Generation Urine Color Yellow Urine Appearance Clear Urine pH 7.0 Ur Specific [place] 1.021 Urine Protein Negative Urine Glucose (UA) >=500 Urine Ketones Negative Urine Blood Negative Urine Nitrate Negative Urine Bilirubin Negative Urine Urobilinogen < 2.0 H Urine Leukocytes Negative Urine WBC 1 Ur Squamous Epith Cells Occasional Ur Culture Indicated? Not indicated 11/29/16 11/29/16 11/29/16 19:00 15:47 15:47 WBC 7.3 RBC 4.07 Hgb 11.4 L Hct 34.3 L MCV 84.3 L MCH 28 MCHC 33.2 RDW 14.0 Plt Count 128 L MPV 10.7 Neut % (Auto) 79.5 H Lymph % (Auto) 13.1 L [place] % (Auto) 4.8 Eos % (Auto) 1.4 Baso % (Auto) 0.7 Neut # (Auto) 5.8 Lymph # (Auto) 1.0 L [place] # (Auto) 0.4 Eos # (Auto) 0.1 Baso # (Auto) 0.1 Immature Gran % 0.5 Nucleated RBC % 0.0 Immature Gran # 0.04 Nucleated RBCs # 0.00 INR PT Patient/Control Mix Sodium Potassium Chloride Carbon Dioxide Anion Gap BUN Creatinine GFR Calculation BUN/Creatinine Ratio Glucose POC Glucose 330 H Calculated Osmolality Calcium Magnesium Total Bilirubin AST ALT Alkaline Phosphatase Total Creatine Kinase CK-MB (CK-2) Troponin I B-Natriuretic Peptide 425 H Total Protein Albumin Globulin Albumin/Globulin Ratio Triglycerides Cholesterol LDL Cholesterol VLDL Cholesterol HDL Cholesterol Heart Disease Risk Ratio Free T4 TSH 3rd Generation Urine Color Urine Appearance Urine pH Ur Specific [place] Urine Protein Urine Glucose (UA) Urine Ketones Urine Blood Urine Nitrate Urine Bilirubin Urine Urobilinogen Urine Leukocytes Urine WBC Ur Squamous Epith Cells Ur Culture Indicated? 11/29/16 11/29/16 11/29/16 15:45 15:44 15:44 WBC RBC Hgb Hct MCV MCH MCHC RDW Plt Count MPV Neut % (Auto) Lymph % (Auto) [place] % (Auto) Eos % (Auto) Baso % (Auto) Neut # (Auto) Lymph # (Auto) [place] # (Auto) Eos # (Auto) Baso # (Auto) Immature Gran % Nucleated RBC % Immature Gran # Nucleated RBCs # INR 2.0 PT Patient/Control Mix 22.3 D Sodium Potassium Chloride Carbon Dioxide Anion Gap BUN Creatinine GFR Calculation BUN/Creatinine Ratio Glucose POC Glucose Calculated Osmolality Calcium Magnesium Total Bilirubin AST ALT Alkaline Phosphatase Total Creatine Kinase 82 CK-MB (CK-2) 1.6 Troponin I 0.018 B-Natriuretic Peptide Total Protein Albumin Globulin Albumin/Globulin Ratio Triglycerides Cholesterol LDL Cholesterol VLDL Cholesterol HDL Cholesterol Heart Disease Risk Ratio Free T4 1.50 H TSH 3rd Generation 1.120 Urine Color Urine Appearance Urine pH Ur Specific [place] Urine Protein Urine Glucose (UA) Urine Ketones Urine Blood Urine Nitrate Urine Bilirubin Urine Urobilinogen Urine Leukocytes Urine WBC Ur Squamous Epith Cells Ur Culture Indicated? 11/29/16 11/29/16 15:44 15:44 WBC RBC Hgb Hct MCV MCH MCHC RDW Plt Count MPV Neut % (Auto) Lymph % (Auto) [place] % (Auto) Eos % (Auto) Baso % (Auto) Neut # (Auto) Lymph # (Auto) [place] # (Auto) Eos # (Auto) Baso # (Auto) Immature Gran % Nucleated RBC % Immature Gran # Nucleated RBCs # INR PT Patient/Control Mix Sodium 140 Potassium 3.0 L Chloride 102 Carbon Dioxide 29 Anion Gap 12.0 BUN 10 Creatinine 0.80 GFR Calculation 76 BUN/Creatinine Ratio 12.00 Glucose 277 H POC Glucose Calculated Osmolality 287.4 Calcium 8.3 L Magnesium Total Bilirubin 0.70 AST 12 ALT 13 Alkaline Phosphatase 68 Total Creatine Kinase CK-MB (CK-2) Troponin I B-Natriuretic Peptide Total Protein 6.6 Albumin 3.4 Globulin 3.2 Albumin/Globulin Ratio 1.0 L Triglycerides 157 H Cholesterol 94 LDL Cholesterol 38.0 VLDL Cholesterol 31.4 HDL Cholesterol 42 Heart Disease Risk Ratio 2.24 Free T4 TSH 3rd Generation Urine Color Urine Appearance Urine pH Ur Specific [place] Urine Protein Urine Glucose (UA) Urine Ketones Urine Blood Urine Nitrate Urine Bilirubin Urine Urobilinogen Urine Leukocytes Urine WBC Ur Squamous Epith Cells Ur Culture Indicated? - Imaging and Cardiology Cardiology Procedure: report reviewed by me Procedure: Chest x-ray: report reviewed by me DS: Provider Date of admission: 11/29/16 15:11 Primary care physician: Santana Calles MD Attending physician on admission: Margret Rios DO Consults: 11/29/16 14:33 Consult to Pharmacy [CONS] Routine Reason for Pharmacy Consult: Adjust Meds Renal Funct Discharging clinician: Sharlene Arreola NP Expected date of discharge: 11/30/16
[2016-12-01] MEDS ORDERED: LEVOFLOXACIN 500 MG TABLET PO SCH (09:00)
[2016-12-01] MEDS ORDERED: FUROSEMIDE 40 MG TABLET PO SCH (09:00)
== END 2016-11-30 16:15 | disposition home or self-care (01) ==
LOC: N.TELEN
PROVIDERS: ADMIT Internal Medicine Cardiovascular Disease; ATTEND Internal Medicine Cardiovascular Disease

== ENCOUNTER 2016-12-27 20:52 | Inpatient (IN) ==
[2016-12-27] MEDS ORDERED: DILTIAZEM 50 MG/10 ML VIAL IV ONE (21:24)
[2016-12-27] MEDS ORDERED: DILTIAZEM 50 MG/10 ML VIAL IV STA (21:28)
[2016-12-27 21:37] LABS: Basophils % 0.5 % (0.0-0.8); Eosinophils # 0.2 10*3/uL (0.0-0.87); Eosinophils % 1.8 % (0.00-10.9); Hematocrit 37.7 VOL% (35.7-47.0); Hemoglobin 12.8 GM/DL (12.0-16.0); Immature Granulocytes % 0.6 %; Immature Granulocytes Absolute 0.05 #; Lymphocytes # 1.3 10*3/uL (1.4-4.0); Lymphocytes % 15.8 % (21.3-54.2); Mean Corpuscular Hemoglobin 28 PG (27-34); Mean Corpuscular Volume 82.5 FL (87-102); Mean Platelet Volume 10.4 FL (9.6-12.0); Monocytes # 0.5 10*3/uL (0.11-0.8); Monocytes % 6.4 % (1.7-12.7); Neutrophils # 6.3 10*3/uL (1.4-7.4); Neutrophils % 74.9 % (38.7-73.9); Platelet Count 131 T/CUMM (130-400); Red Blood Count 4.57 MC/CUMM (3.8-5.5); Red Cell Distribution Width 14.2 % (9.3-17.3); White Blood Count 8.4 T/CUMM (4-12)
--- NOTE | 2016-12-27 21:41 | Emergency Department Note ---
Arrival - Arrival Chief Complaint: Chest Pain Stated Complaint: chest pains ED Nursing Triage Note: Pt to triage with c/o chest pain that started about an hour ago, chest tightness radiating to her neck and across her chest. C/O SOB, denies any n/v. Pt states she took 1 nitro and had some relife. Mode of Arrival: Wheelchair Limitations: No Limitations Source: Patient, Family Time Seen by Provider: 12/27/16 21:27 - History of Present Illness HPI Narrative: This 81-year-old white female presents with a 1 hour history of abrupt onset of palpitations associated with left-sided chest pain radiating to the neck and associated with shortness of breath. The patient took one nitro with minimal improvement and proceeded to the ER. Here in triage she demonstrated SVT in the 140s and was immediately brought back. At this time she denies any shortness of breath, diaphoresis, nausea, or court vomiting. Onset (ago): hour(s) (Patient presents 1 hour post onset of in-stent) Allergies/Adverse Reactions: Allergies Allergy/AdvReac Type Severity Reaction Status Date / Time adhesive tape Allergy Intermediate RASH Verified 12/27/16 21:20 cephalexin [From Keflex] Allergy Diarrhea Verified 12/27/16 21:20 pioglitazone [From Actos] Allergy Diarrhea Verified 12/27/16 21:20 codeine AdvReac Intermediate Vomiting Verified 12/27/16 21:20 morphine AdvReac Intermediate Vomiting Verified 12/27/16 21:20 Home Medications: Home Medications Medication Instructions Recorded Confirmed Type Levothyroxine Tab [Synthroid Tab] 100 mcg PO DAILY 03/24/15 11/29/16 History Insulin Detemir [Levemir] 35 unit SUBCUT BEDTIME 09/12/16 11/29/16 History Mirabegron [Myrbetriq] 25 mg PO DAILY 09/12/16 11/29/16 History sitaGLIPtin [Januvia] 100 mg PO DAILY 09/12/16 11/29/16 History Warfarin [Coumadin] 4 mg PO DAILY 09/13/16 11/29/16 History Colestipol [Colestid] 2 gm PO BID 10/24/16 11/29/16 History Metoprolol Tartrate 25 mg PO BID 10/24/16 11/29/16 History Aspirin EC Tab 81 mg PO DAILY #30 tablet 10/26/16 11/29/16 Rx Atorvastatin [Lipitor] 40 mg PO BEDTIME #30 tablet 10/26/16 11/29/16 Rx Clopidogrel [Plavix] 75 mg PO DAILY #30 tablet 10/26/16 11/29/16 Rx Pantoprazole Tab [Protonix Tab] 40 mg PO DAILY #30 tablet 10/26/16 11/29/16 Rx Ferrous Sulfate 325 mg PO DAILY 11/29/16 11/29/16 History Magnesium Oxide 400 mg PO BID 11/29/16 11/29/16 History Furosemide Tab [Lasix Tab] 40 mg PO DAILY #30 tablet 11/30/16 Rx Glimepiride 4 mg PO BID 11/30/16 11/30/16 History Levofloxacin Tab [Levaquin Tab] 500 mg PO DAILY #6 tablet 11/30/16 Rx dilTIAZem HCl [Diltiazem ER (24 120 mg PO DAILY #30 capsule 11/30/16 Rx hr)] Review of System - Review of System 12 point system: reviewed and no additional remarkable complaints except as stated - Review of System Constitutional: Present: as per HPI Respiratory: Present: as per HPI Cardiovascular: Present: as per HPI Gastrointestinal: Present: as per HPI Medical,Surgical,& Family Hx - Medical History Cardio: History of: Cardiac Dysrhythmia (atrial fib), CAD, Hypertension, Pacemaker (type unknown placed by Dr. Avelar at [facility]) Neurology: No history of: Seizures HEENT: History of: Ear Problem (hard of hearing), HEENT Problems (bilateral cataract) Endocrine: History of: Diabetes Mellitus (IDDM), Thyroid Disorder ( hypothyroidism) No history of: Diabetes Mellitus (NIDDM) Respiratory: History of: Bronchitis, Obstructive Sleep Apnea (doesnt use Cpap), Pulmonary Hypertension Genitourinary: History of: Bladder Problem (has had Bladder surgery), Recurring Urinary Tract Infections (frequent bladder infections), Problems (Bladder mesh) Gastrointestinal: History of: GERD, Hemorrhoids, GI Problems (diarrhea, dysphagia) Musculoskeletal: History of: Back/Neck Problems (arthritis) Hematology: History of: Anemia No history of: Blood Transfusion Reaction Reproductive: History of: Breast Cancer (right mastectomy-2004) Other: History of: Cancer (breast cancer) No history of: Anesthesia Reactions - Surgical History Cardiac Surgeries: Sugical HX of: Cardiac Catheterization Patient Denies: Carotid Endarterectomy HEENT Surgeries: Surgical HX of: Eye Surgery (cataracts), Thyroid Surgery (lt. thyroid) Patient denies: Carotid Endarterectomy Abdominal Surgeries: Surgical HX of: Appendectomy, Cholecystectomy, Colonoscopy , EGD Reproductive Surgeries: Surgical HX of;: Breast Surgery (rt. mastectomy), Genitourinary Surgery (bladder tack), Hysterectomy Orthopedic Surgeries: Patient denies;: Orthopedic Surgery - Family History Family History: Reports;: Family Cancer (father), Family Diabetes (grandmother) , Family Heart Disease (mother ([place]), Father), Family Hypertension (Father, Mother, Son), Family Stroke (Mother) - Social History Smoking Status: Never smoker Frequency of Alcohol Use: None Type of Drug Use: None Exam Physical Examination: GENERAL: Well developed, well nourished elderly white female in no acute distress. HEENT: Normocephalic. No trauma. Moist mucous membranes. EOMI. PERRLA. ENT NML NECK: Supple. No adenopathy. CARDIAC: Irregular. No murmurs. 144 heart rate CHEST: Clear to auscultation. No respiratory distress. O2 sat 97% ABDOMEN: Soft. Nontender. Active bowel sounds. EXTREMITIES: No trauma. Normal ROM. No pedal edema. SKIN: No diaphoresis. No rash. NEURO: Alert. Oriented 3. Motor, sensory, vibratory intact. No focal deficits. Vital Signs: Vital Signs Temperature 98.4 F 12/27/16 21:12 Pulse Rate 147 H 12/27/16 21:12 Respiratory Rate 16 12/27/16 21:30 Blood Pressure 97/65 12/27/16 21:12 O2 Sat by Pulse Oximetry 97 12/27/16 21:12 Course - Reevaluation(s) Reevaluation #1: Discussed with patient the need for hospitalization given she still was in atrial fib although controlled. - Consultations Consultation #1: Discussed with Dr. Quiroga who will admit for Dr. Clay for further evaluation and treatment. Results - Labs CBC & BMP: 12/27/16 21:24 12/27/16 21:24 Labs: I reviewed the laboratory noted the normal cardiac's and expected glucose elevation. - Impressions EKG: SVT at 145 with a atrial flutter fib pattern and diffuse ST abnormalities. - Diagnostic Findings Procedure: Chest x-ray: image reviewed by me, report reviewed by me (Normal chest with pacemaker noted) Disposition Clinical Impression: Atrial fibrillation with rapid ventricul, CAD status post stent Case discussed with: patient, patient's family Disposition: Still a Patient Condition: Guarded Time of Disposition: 23:16
[2016-12-27 21:46] LABS: Partial Thromboplastin Time 35.5 SECS (0-40)
[2016-12-27 21:47] LABS: PT Patient Result 22.4 SECS
[2016-12-27 22:07] LABS: Free T4 (Free Thyroxine) 1.35 NG/DL (0.76-1.46); Troponin I Only < 0.015 NG/ML (0.00-0.045)
[2016-12-27 22:12] LABS: Alanine Aminotransferase 15 U/L (13-56); Albumin 3.8 G/DL (3.4-5.0); Alkaline Phosphatase 104 U/L (45-117); Aspartate Amino Transferase 15 U/L (0-37); Blood Urea Nitrogen 13 MG/DL (7-18); Calcium 8.9 MG/DL (8.5-10.1); Glucose 378 MG/DL (74-106); Osmolality,Calculated 288.8 MOS/KG (273-304); Potassium 4.1 MMOL/L (3.5-5.1); Sodium 137 MMOL/L (136-145); Total Protein 7.3 G/DL (6.4-8.3); Troponin I Only < 0.015 NG/ML (0.00-0.045)
--- NOTE | 2016-12-27 22:29 | XRay Report ---
XR chest 1V portable Indication: Shortness of breath Comparison: Chest x-ray 11/30/2016 Technique: Portable AP chest was performed. Findings: The heart is minimally enlarged. Cardiac pacemaker is stable. Minimal intimal calcification of the aortic knob is stable. Pulmonary vasculature demonstrates no specific abnormality. Hilar structures demonstrate fairly symmetric appearance. The lungs demonstrate little change from comparison study. Bones and soft tissues demonstrate no evidence of acute pathology. Impression: 1. Stable chest. No specific evidence of acute pathology. 12/27/2016 10:26 PM PROCEDURE INTERPRETED AT [facility] DEPARTMENT OF RADIOLOGY Final Report Signed by: Dr. Saurabh Strange
[2016-12-27 23:04] LABS: Apearance,Urine CLEAR (Clear); Bilirubin,Urine Negative (Negative); Blood, Urine Negative (Negative); Glucose,Urine (UA) >=500 mg/dL (Negative); Ketones,Urine Negative (Negative); Nitrite,Urine Negative (Negative); Protein,Urine Negative; RBC,Urine <1 /HPF (0-4); Squamous Epithelial Cell,Urine Occasional /HPF (0-10); Urine Color Straw (Yellow); Urine Specific Gravity 1.016 (1.001-1.035); Urine Urobilinogen < 2.0 EU/DL (0.2-1.0); WBC,Urine 1 /HPF (0-6)
[2016-12-27 23:15] LABS: Barbiturates Screen,Urine Negative (Negative); Benzodiazepines Screen,Urine Negative (Negative); Cannabinoid Screen,Urine Negative (Negative); Opiate Screen,Urine Negative (Negative); Phencyclidine Screen,Urine Negative (Negative)
[2016-12-27] MEDS ORDERED: GLUCAGON 1 MG VIAL IM PRN (23:18)
[2016-12-27] MEDS ORDERED: DEXTROSE 50% 25 GM/50 ML VIAL IV PRN (23:18)
[2016-12-27] MEDS ORDERED: ONDANSETRON 4 MG/2 ML VIAL IV PRN (23:18)
[2016-12-28] MEDS: LEVOTHYROXINE 100 MCG TABLET PO SCH (06:25)
--- NOTE | 2016-12-28 06:57 | EKG Report ---
Stationary ECG Study [facility] Test Date: 12/28/2016 6:56:58 AM Pat Name: JANETTE HERRERA Department: Room: 263 Gender: F [employer] B[employer] Maker: FERNANDO : 1935 Requested by: Abram Johnson Order Number: [id number] Reading MD: GAGAN PENA Intervals Dexter Rate: 60 P: 253 CT: 172 QRS: 42 QRSD: 101 T: -38 QT: 444 QTc: 444 Interpretive Statements ELECTRONIC ATRIAL PACEMAKER LOW QRS VOLTAGE IN PRECORDIAL LEADS Electronically Signed On 12-30-16 15:38:51 CDT by GAGAN PENA [email or web address]
[2016-12-28] MEDS ORDERED: METOPROLOL TARTRATE 50 MG TABLET PO SCH (09:00)
--- NOTE | 2016-12-28 09:44 | Cardiology History & Physical ---
Assessment and Plan - Time spent with patient Time spent with patient: Greater than 30 minutes (due to assessment, plan, and documentation) (1) Paroxysmal atrial fibrillation Status: Chronic Assessment and plan: SEE PLAN OF CARE LISTED BELOW. Current Visit: Yes (2) SVT (supraventricular tachycardia) Status: Acute Assessment and plan: SEE PLAN OF CARE LISTED BELOW. Current Visit: Yes (3) Chest pain Status: Acute Assessment and plan: SEE PLAN OF CARE LISTED BELOW. Current Visit: No (4) Coronary artery disease Status: Chronic Assessment and plan: SEE PLAN OF CARE LISTED BELOW. Current Visit: No Qualifiers: Coronary Disease-Associated Artery/Lesion type: [place] artery [place] vs. transplanted heart: ne[place] heart (5) Status post insertion of drug-eluting stent into left anterior descending ( LAD) artery for coronary artery disease Status: Chronic Assessment and plan: SEE PLAN OF CARE LISTED BELOW. Current Visit: No (6) Hypertension Status: Chronic Assessment and plan: SEE PLAN OF CARE LISTED BELOW. Current Visit: No (7) Dyslipidemia Status: Chronic Assessment and plan: SEE PLAN OF CARE LISTED BELOW. Current Visit: No (8) Diabetes mellitus Status: Chronic Assessment and plan: SEE PLAN OF CARE LISTED BELOW. Current Visit: No (9) Pulmonary hypertension Status: Chronic Assessment and plan: SEE PLAN OF CARE LISTED BELOW. 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 MERA MCGARRY Ms. Farias is a 81 year old female with a history of coronary artery disease, pulmonary hypertension, paroxysmal atrial fibrillation, type 2 diabetes mellitus, dyslipidemia, hypertension, hypothyroidism, unspecified atrial flutter, anemia, GERD. October 24, 2016 she underwent left and right heart catheterization and received a drug eluting stent to an 80% stenosis of the proximal LAD. EF at that time was 55% with no regional wall motion abnormalities and trivial MR. She continues to complain of chronic dyspnea on exertion. Ms. Farias presented to the emergency room last night with complaints of chest pain that began approximately 1 hour prior to arrival. Family at the bedside reports she came into the house from being outside and almost passed out. She then subsequently experienced midsternal-left sided chest discomfort that radiated into her neck. She had associated symptoms of palpitations, nausea, and shortness of breath. She describes this pain as a "tightness." She reportedly took one sublingual nitroglycerin which did not relieve her pain and proceeded to the emergency department. She reports upon arrival to the ER, she was given medications which subsequently relieved her discomfort. She has experienced no further symptoms since. Upon arrival, she was noted to be in SVT with rates in the 140's. Her [employer] pacemaker was interrogated this morning and she has had frequent paroxysmal atrial fibrillation and flutter episodes with some rates as high as 169. She is now in a paced sinus rhythm with rates in the 60s. ASSESSMENT/PLAN: 1. PAROXYSMAL ATRIAL FIBRILLATION - Currently in sinus rhythm with rates in the 60s. Will monitor and adjust medications as needed. 2. SVT - She was given IV diltiazem in the ER and subsequently converted back to sinus rhythm with well controlled rate. 3. CHEST PAIN - This seems to be directly related to her tachycardia. Since converting back to a sinus rhythm with well controlled rate, she has had no further episodes of chest discomfort. Her initial cardiac biomarkers were negative. We will continue to cycle. 4. CAD - October 24, 2016 she underwent left and right heart catheterization and received a drug eluting stent to an 80% stenosis of the proximal LAD. EF at that time was 55% with no regional wall motion abnormalities and trivial MR. 5. S/P PCI - October 24, 2016 she underwent left and right heart catheterization and received a drug eluting stent to an 80% stenosis of the proximal LAD. EF at that time was 55% with no regional wall motion abnormalities and trivial MR. 6. HYPERTENSION - Currently well controlled. Will continue to monitor and adjust medications accordingly. 7. DYSLIPIDEMIA - Continue lipid-lowering agent. 8. DIABETES MELLITUS - She has been placed on accuchecks with sliding scale insulin. 9. PULMONARY HYPERTENSION - Will monitor. Dr. Mcconnell to follow with further plan and addendum. Home Medications Medication Instructions Recorded Confirmed Type Levothyroxine Tab [Synthroid Tab] 100 mcg PO DAILY 03/24/15 12/28/16 History Insulin Detemir [Levemir] 35 unit SUBCUT BEDTIME 09/12/16 12/28/16 History Mirabegron [Myrbetriq] 25 mg PO DAILY 09/12/16 12/28/16 History sitaGLIPtin [Januvia] 100 mg PO DAILY 09/12/16 12/28/16 History Warfarin [Coumadin] 4 mg PO DAILY 09/13/16 12/28/16 History Colestipol [Colestid] 2 gm PO BID PRN 10/24/16 12/28/16 History Metoprolol Tartrate 25 mg PO BID 10/24/16 12/28/16 History Atorvastatin [Lipitor] 40 mg PO BEDTIME #30 tablet 10/26/16 12/28/16 Rx Pantoprazole Tab [Protonix Tab] 40 mg PO DAILY #30 tablet 10/26/16 12/28/16 Rx Ferrous Sulfate 325 mg PO DAILY 11/29/16 12/28/16 History Magnesium Oxide 400 mg PO BID 11/29/16 12/28/16 History Furosemide Tab [Lasix Tab] 40 mg PO DAILY #30 tablet 11/30/16 12/28/16 Rx Glimepiride 4 mg PO BID 11/30/16 12/28/16 History Levofloxacin Tab [Levaquin Tab] 500 mg PO DAILY #6 tablet 11/30/16 12/28/16 Rx dilTIAZem HCl [Diltiazem ER (24 120 mg PO DAILY #30 capsule 11/30/16 12/28/16 Rx hr)] Allergies Allergy/AdvReac Type Severity Reaction Status Date / Time adhesive tape Allergy Intermediate RASH Verified 12/27/16 21:20 cephalexin [From Keflex] Allergy Diarrhea Verified 12/27/16 21:20 pioglitazone [From Actos] Allergy Diarrhea Verified 12/27/16 21:20 codeine AdvReac Intermediate Vomiting Verified 12/27/16 21:20 morphine AdvReac Intermediate Vomiting Verified 12/27/16 21:20 Review of systems: - Constitutional: Present: fatigue, As per HPI. Absent: anorexia, chills, daytime sleepiness, excessive sweating, fever(s), frequent falls, headache(s), increased appetite, lethargy, malaise, night sweats, stops breathing during sleep, weakness, weight gain, weight loss. - EENT Eyes: Present: As per HPI. Absent: blurry vision, diplopia, loss of vision Ears: Present: As per HPI. Absent: decreased hearing, ear discharge, ear pain Nose, mouth and throat: Present: neck pain, As per HPI. Absent: dysphagia, epistaxis, headache(s), hoarseness, lip swelling, nasal congestion, neck mass, sinus pressure, sore throat, throat swelling, tongue swelling, vertigo - Cardiovascular: Present: chest pain at rest, dyspnea, dyspnea on exertion, palpitations, radiating jaw, neck or arm pain, lightheadedness, as per HPI. Absent: chest pain with activity, edema, claudication, diaphoresis, orthopnea, PND - Respiratory: Present: dyspnea, dyspnea on exertion, as per HPI. Absent: cough , hemoptysis, wheezing, snoring, pain on inspiration - Gastrointestinal: Present: nausea, As per HPI. Absent: abdominal pain, bloating, change in bowel habits, constipation, diarrhea, heartburn, hematemesis , loose stools, vomiting - Genitourinary: Present: As per HPI. Absent: difficulty urinating, dysuria, flank pain, hematuria, nocturia, urinary frequency, urinary incontinence - Musculoskeletal: Present: As per HPI. Absent: arthralgias, back pain, joint swelling, limited range of motion, muscle cramps, muscle weakness, myalgias - Neurological: Present: As per HPI. Absent: abnormal gait, abnormal speech, behavioral changes, confusion, convulsions, disequilibrium, dizziness, focal weakness, frequent falls, headache(s), memory loss, numbness, paresthesias, radicular pain, syncope, tremor(s) - Psychiatric: Present: As per HPI. Absent: anxiety, confusion, depression, panic attacks - Endocrine: Present: fatigue, As per HPI. Absent: cold intolerance, heat intolerance, polydipsia, polyphagia - Hematologic/Lymphatic: Present: easy bleeding, easy bruising, As per HPI. Absent: lymphadenopathy Medical,Surgical,& Family Hx - Medical History Cardio: History of: Cardiac Dysrhythmia (atrial fib), CAD, Hypertension, Pacemaker (type unknown placed by Dr. Avelar at [facility]) Neurology: No history of: Seizures HEENT: History of: Ear Problem (hard of hearing), HEENT Problems (bilateral cataract) Endocrine: History of: Diabetes Mellitus (IDDM), Thyroid Disorder ( hypothyroidism) No history of: Diabetes Mellitus (NIDDM) Respiratory: History of: Bronchitis, Obstructive Sleep Apnea (doesnt use Cpap), Pulmonary Hypertension Genitourinary: History of: Bladder Problem (has had Bladder surgery), Recurring Urinary Tract Infections (frequent bladder infections), Problems (Bladder mesh) Gastrointestinal: History of: GERD, Hemorrhoids, GI Problems (diarrhea, dysphagia) Musculoskeletal: History of: Back/Neck Problems (arthritis) Hematology: History of: Anemia No history of: Blood Transfusion Reaction Reproductive: History of: Breast Cancer (right mastectomy-2005) Other: History of: Cancer (breast cancer) No history of: Anesthesia Reactions - Surgical History Cardiac Surgeries: Sugical HX of: Cardiac Catheterization Patient Denies: Carotid Endarterectomy HEENT Surgeries: Surgical HX of: Eye Surgery (cataracts), Thyroid Surgery (lt. thyroid) Patient denies: Carotid Endarterectomy Abdominal Surgeries: Surgical HX of: Appendectomy, Cholecystectomy, Colonoscopy , EGD Reproductive Surgeries: Surgical HX of;: Breast Surgery (rt. mastectomy), Genitourinary Surgery (bladder tack), Hysterectomy Orthopedic Surgeries: Patient denies;: Orthopedic Surgery - Family History Family History: Reports;: Family Cancer (father), Family Diabetes (grandmother) , Family Heart Disease (mother ([place]), Father), Family Hypertension (Father, Mother, Son), Family Stroke (Mother) - Social History Smoking Status: Never smoker Frequency of Alcohol Use: None Type of Drug Use: None Marital Status: Lives With:: Spouse Functional capacity: independent ambulation Cardiology Physical Exam - Constitutional Vitals: Vital Signs Temp Pulse Resp BP Pulse Ox 98 F 60 18 139/65 94 L 12/28/16 08:00 12/28/16 08:00 12/28/16 08:00 12/28/16 08:00 12/28/16 08:00 Intake and Output 12/27/16 12/28/16 12/28/16 22:59 06:59 14:59 Intake Total 120 / 120 Output Total 600 / 600 Balance -480 / -480 Intake: Oral 120 / 120 Output: Urine 600 / 600 Other: Weight 182 lb 174 lb Exam: General appearance: Pleasant and cooperative. Overweight, no acute distress. - Head Head exam: Present: normal inspection, normocephalic, atraumatic. Absent: hematoma, laceration - Eye Eye exam: Present: EOMI. Absent: conjunctival injection, nystagmus, periorbital swelling, scleral icterus, laceration to eyelids Pupils: Present: PERRL. Absent: constricted, dilated, fixed, irregular, unequal - ENT ENT exam: Present: normal exam, normal external ear exam - Neck Neck exam: Present: normal inspection. Absent: lymphadenopathy, meningismus, tenderness, thyromegaly - Respiratory Respiratory exam: Present: clear to auscultation bilaterally. Absent: accessory muscle use, chest wall tenderness - Cardiovascular Cardiovascular exam: Present: regular rate and rhythm. Absent: carotid bruit, gallop, JVD, rubs, murmur - GI/Abdominal GI/Abdominal exam: Present: normal bowel sounds, soft. Absent: distended, firm , guarding, hernia, mass, tenderness, rebound. - Extremities Exam Extremities exam: Present: normal inspection, normal capillary refill. Upper extremity pulses 2+. Lower extremity pulses 2+. Absent: calf tenderness, edema -Musculoskeletal Exam Musculoskeletal: Present: No Fluid Collection, No Pain, Normal Range of Motion - Back Exam Back exam: Present: normal inspection. Absent: muscle spasm, vertebral tenderness - Neurological Exam Neurological exam: Present: alert, oriented X3, grossly intact without resting or essential tremor - Psychiatric Psychiatric exam: Present: normal affect, normal mood - Skin Skin exam: Present: normal color, warm, dry, intact. Absent: cyanosis, diaphoretic, rash, urticaria Result/EKG - Labs CBC & BMP: 12/27/16 21:24 12/27/16 21:24 Lab Results: I have reviewed the past 24 hour labs Labs: Laboratory Results - last 24 hr 12/27/16 12/27/16 12/27/16 21:24 21:24 21:24 WBC RBC Hgb Hct MCV MCH MCHC RDW Plt Count MPV Neut % (Auto) Lymph % (Auto) [place] % (Auto) Eos % (Auto) Baso % (Auto) Neut # (Auto) Lymph # (Auto) [place] # (Auto) Eos # (Auto) Baso # (Auto) Immature Gran % Nucleated RBC % Immature Gran # Nucleated RBCs # INR 2.0 PT Patient/Control Mix 22.4 Circ Anticoag PTT 35.5 Sodium Potassium Chloride Carbon Dioxide Anion Gap BUN Creatinine GFR Calculation BUN/Creatinine Ratio Glucose POC Glucose Calculated Osmolality Calcium Total Bilirubin AST ALT Alkaline Phosphatase Total Creatine Kinase 101 CK-MB (CK-2) 1.6 Troponin I < 0.015 Total Protein Albumin Globulin Albumin/Globulin Ratio Free T4 1.35 TSH 3rd Generation Urine Color Straw Urine Appearance Clear Urine pH 7.0 Ur Specific [place] 1.016 Urine Protein Negative Urine Glucose (UA) >=500 Urine Ketones Negative Urine Blood Negative Urine Nitrate Negative Urine Bilirubin Negative Urine Urobilinogen < 2.0 H Urine Leukocytes Negative Urine RBC <1 Urine WBC 1 Ur Squamous Epith Cells Occasional Ur Culture Indicated? Not indicated Urine Opiates Screen Ur Barbiturates Screen Ur Phencyclidine Scrn U Amphetamine/Methamph U Benzodiazepines Scrn U Cocaine Metab Screen U Cannabinoids Screen 12/27/16 12/27/16 12/27/16 21:24 21:24 21:24 WBC 8.4 RBC 4.57 Hgb 12.8 Hct 37.7 MCV 82.5 L MCH 28 MCHC 34.0 RDW 14.2 Plt Count 131 MPV 10.4 Neut % (Auto) 74.9 H Lymph % (Auto) 15.8 L [place] % (Auto) 6.4 Eos % (Auto) 1.8 Baso % (Auto) 0.5 Neut # (Auto) 6.3 Lymph # (Auto) 1.3 L [place] # (Auto) 0.5 Eos # (Auto) 0.2 Baso # (Auto) 0.0 Immature Gran % 0.6 Nucleated RBC % 0.0 Immature Gran # 0.05 Nucleated RBCs # 0.00 INR PT Patient/Control Mix Circ Anticoag PTT Sodium 137 Potassium 4.1 Chloride 98 Carbon Dioxide 26 Anion Gap 17.1 H BUN 13 Creatinine 1.20 H GFR Calculation 47 BUN/Creatinine Ratio 10.00 Glucose 378 H POC Glucose Calculated Osmolality 288.8 Calcium 8.9 Total Bilirubin 0.80 AST 15 ALT 15 Alkaline Phosphatase 104 Total Creatine Kinase CK-MB (CK-2) Troponin I < 0.015 Total Protein 7.3 Albumin 3.8 Globulin 3.5 Albumin/Globulin Ratio 1.0 L Free T4 TSH 3rd Generation 1.660 Urine Color Urine Appearance Urine pH Ur Specific [place] Urine Protein Urine Glucose (UA) Urine Ketones Urine Blood Urine Nitrate Urine Bilirubin Urine Urobilinogen Urine Leukocytes Urine RBC Urine WBC Ur Squamous Epith Cells Ur Culture Indicated? Urine Opiates Screen Negative Ur Barbiturates Screen Negative Ur Phencyclidine Scrn Negative U Amphetamine/Methamph Negative U Benzodiazepines Scrn Negative U Cocaine Metab Screen Negative U Cannabinoids Screen Negative 12/28/16 07:31 WBC RBC Hgb Hct MCV MCH MCHC RDW Plt Count MPV Neut % (Auto) Lymph % (Auto) [place] % (Auto) Eos % (Auto) Baso % (Auto) Neut # (Auto) Lymph # (Auto) [place] # (Auto) Eos # (Auto) Baso # (Auto) Immature Gran % Nucleated RBC % Immature Gran # Nucleated RBCs # INR PT Patient/Control Mix Circ Anticoag PTT Sodium Potassium Chloride Carbon Dioxide Anion Gap BUN Creatinine GFR Calculation BUN/Creatinine Ratio Glucose POC Glucose 261 H Calculated Osmolality Calcium Total Bilirubin AST ALT Alkaline Phosphatase Total Creatine Kinase CK-MB (CK-2) Troponin I Total Protein Albumin Globulin Albumin/Globulin Ratio Free T4 TSH 3rd Generation Urine Color Urine Appearance Urine pH Ur Specific [place] Urine Protein Urine Glucose (UA) Urine Ketones Urine Blood Urine Nitrate Urine Bilirubin Urine Urobilinogen Urine Leukocytes Urine RBC Urine WBC Ur Squamous Epith Cells Ur Culture Indicated? Urine Opiates Screen Ur Barbiturates Screen Ur Phencyclidine Scrn U Amphetamine/Methamph U Benzodiazepines Scrn U Cocaine Metab Screen U Cannabinoids Screen - EKG EKG results: interpreted by me (paced with currently underlying sinus rhythm)
[2016-12-28] MEDS: COLESTIPOL 1 GM TABLET PO SCH ×2 (09:50→21:43)
[2016-12-28] MEDS: INSULIN REGULAR 100 UNIT/ML SUBCUT SCH ×4 (09:50→21:43)
[2016-12-28] MEDS: ASPIRIN EC 81 MG TABLET PO SCH (09:51)
[2016-12-28] MEDS: PANTOPRAZOLE 40 MG TABLET PO SCH (09:51)
[2016-12-28] MEDS: sitaGLIPtin 100 MG TABLET PO SCH (09:51)
[2016-12-28] MEDS: CLOPIDOGREL 75 MG TABLET PO SCH (09:51)
[2016-12-28] MEDS: GLIMEPIRIDE 4 MG TABLET PO SCH ×2 (09:51→18:00)
--- NOTE | 2016-12-28 10:11 | EKG Report ---
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
[2016-12-28 10:18] LABS: Troponin I Only < 0.015 NG/ML (0.00-0.045)
--- NOTE | 2016-12-28 11:08 | EKG Report ---
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
[2016-12-28] MEDS: MAGNESIUM OXIDE 400 MG TABLET PO SCH ×2 (11:12→21:44)
[2016-12-28] MEDS: DILTIAZEM CD 120 MG CAPSULE PO SCH (11:12)
[2016-12-28 14:50] LABS: Troponin I Only < 0.015 NG/ML (0.00-0.045)
[2016-12-28] MEDS ORDERED: WARFARIN 4 MG TABLET PO SCH (18:00)
[2016-12-28 20:45] LABS: Troponin I Only < 0.015 NG/ML (0.00-0.045)
[2016-12-28] MEDS: SOTALOL 80 MG TABLET PO SCH (21:44)
[2016-12-28] MEDS: ATORVASTATIN 40 MG TABLET PO SCH (21:44)
[2016-12-28] MEDS: INSULIN GLARGINE 100 UNIT/ML SUBCUT SCH (21:45)
[2016-12-29] MEDS ORDERED: ACETAMINOPHEN 325 MG TABLET PO PRN (02:31)
[2016-12-29 03:13] LABS: Basophils # 0.1 10*3/uL (0.0-0.2); Basophils % 0.6 % (0.0-0.8); Eosinophils # 0.2 10*3/uL (0.0-0.87); Eosinophils % 2.3 % (0.00-10.9); Hematocrit 33.5 VOL% (35.7-47.0); Hemoglobin 11.4 GM/DL (12.0-16.0); Immature Granulocytes % 0.5 %; Immature Granulocytes Absolute 0.04 #; Lymphocytes # 1.3 10*3/uL (1.4-4.0); Lymphocytes % 16.5 % (21.3-54.2); Mean Corpuscular Hemoglobin 28 PG (27-34); Mean Corpuscular Volume 81.9 FL (87-102); Mean Platelet Volume 10.6 FL (9.6-12.0); Monocytes # 0.6 10*3/uL (0.11-0.8); Monocytes % 7.4 % (1.7-12.7); Neutrophils # 5.6 10*3/uL (1.4-7.4); Neutrophils % 72.7 % (38.7-73.9); Platelet Count 125 T/CUMM (130-400); Red Blood Count 4.09 MC/CUMM (3.8-5.5); Red Cell Distribution Width 14.2 % (9.3-17.3); White Blood Count 7.7 T/CUMM (4-12)
[2016-12-29 03:22] LABS: INR 1.5; PT Patient Result 16.7 SECS
[2016-12-29 03:28] LABS: Potassium 3.9 MMOL/L (3.5-5.1)
[2016-12-29] MEDS: LEVOTHYROXINE 100 MCG TABLET PO SCH (06:24)
--- NOTE | 2016-12-29 08:38 | EKG Report ---
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
[2016-12-29] MEDS: CLOPIDOGREL 75 MG TABLET PO SCH (10:00)
[2016-12-29] MEDS: SOTALOL 80 MG TABLET PO SCH ×2 (10:00→20:47)
[2016-12-29] MEDS: COLESTIPOL 1 GM TABLET PO SCH ×2 (10:00→21:03)
[2016-12-29] MEDS: PANTOPRAZOLE 40 MG TABLET PO SCH (10:00)
[2016-12-29] MEDS: DILTIAZEM CD 120 MG CAPSULE PO SCH (10:00)
[2016-12-29] MEDS: MAGNESIUM OXIDE 400 MG TABLET PO SCH ×2 (10:00→20:47)
[2016-12-29] MEDS: FUROSEMIDE 40 MG TABLET PO SCH (10:00)
[2016-12-29] MEDS: ASPIRIN EC 81 MG TABLET PO SCH (10:00)
[2016-12-29] MEDS: INSULIN REGULAR 100 UNIT/ML SUBCUT SCH ×4 (10:01→21:03)
[2016-12-29] MEDS: GLIMEPIRIDE 4 MG TABLET PO SCH ×2 (10:01→16:44)
[2016-12-29] MEDS: sitaGLIPtin 100 MG TABLET PO SCH (10:01)
[2016-12-29] MEDS ORDERED: WARFARIN 5 MG TABLET PO SCH (11:27)
--- NOTE | 2016-12-29 11:30 | Cardiology Progress Note ---
Assessment and Plan (1) Atrial fibrillation with rapid ventricular response Status: Resolved Assessment and plan: 81-year-old female, with CAD, status post recent PCI, mild pulmonary hypertension, no significant diastolic dysfunction, dual-chamber pacemaker, paroxysmal atrial fibrillation. She was admitted with atrial fibrillation/ flutter/RVR. She is now converted back to atrial paced rhythm. She is feeling better. Pacemaker interrogation shows episodes of A. fib/flutter, RVR. -Continue sotalol, 80 mg twice daily. No proarrhythmia on telemetry, she is atrial paced. QTc 447, GFR 68. -TFTs normal. She does not have any active ischemia. -Continue anticoagulation with Coumadin. INR subtherapeutic, increase to 5 mg today. -Continue dual antiplatelets, status post recent PCI. No bleeding issues so far on triple therapy -If remains stable, plan to discharge home tomorrow, follow-up with Dr. Levy in 2 weeks. Current Visit: No (2) Diabetes mellitus Status: Chronic Current Visit: No (3) Tachy-kori syndrome Status: Acute Current Visit: No (4) Hypertension Status: Chronic Current Visit: No (5) GERD (gastroesophageal reflux disease) Status: Acute Current Visit: No Cardiology - PN: Subj Interval history: She is feeling fine. Atrial paced rhythm. Exam (Progress Note) - Constitutional Vitals: Period Temp Pulse Resp BP Sys/Petty Pulse Ox Last 24 Hr 97 F-97.6 F 60-66 18-20 121-162/61-70 94-98 General appearance: normal weight, over weight - Head Head exam: Present: normal inspection, normocephalic - Eye Eye exam: Absent: conjunctival injection Pupils: Absent: dilated - ENT ENT exam: Present: normal external ear exam - Neck Neck exam: Present: normal inspection - Respiratory Respiratory exam: Present: clear to auscultation bilaterally - Cardiovascular Cardiovascular exam: Present: regular rate and rhythm - GI/Abdominal GI/Abdominal exam: Present: normal bowel sounds. Absent: distended - Extremities Exam Extremities exam: Present: normal inspection, normal capillary refill. Absent: edema - Back Exam Back exam: Present: normal inspection - Neurological Exam Neurological exam: Present: alert, oriented X3 - Psychiatric Psychiatric exam: Present: normal affect, normal mood - Skin Skin exam: Present: normal color, warm. Absent: cyanosis Result/EKG - Labs CBC & BMP: 12/29/16 02:22 12/29/16 02:22 Lab Results: I have reviewed the past 24 hour labs Labs: Laboratory Results - last 24 hr 12/28/16 12/28/16 12/28/16 11:29 14:11 17:01 WBC RBC Hgb Hct MCV MCH MCHC RDW Plt Count MPV Neut % (Auto) Lymph % (Auto) [place] % (Auto) Eos % (Auto) Baso % (Auto) Neut # (Auto) Lymph # (Auto) [place] # (Auto) Eos # (Auto) Baso # (Auto) Immature Gran % Nucleated RBC % Immature Gran # Nucleated RBCs # INR PT Patient/Control Mix Sodium Potassium Chloride Carbon Dioxide Anion Gap BUN Creatinine GFR Calculation BUN/Creatinine Ratio Glucose POC Glucose 261 H 98 Calculated Osmolality Calcium Magnesium Total Creatine Kinase 35 CK-MB (CK-2) < 1.0 Troponin I < 0.015 12/28/16 12/28/16 12/29/16 20:01 21:27 02:22 WBC 7.7 RBC 4.09 Hgb 11.4 L Hct 33.5 L MCV 81.9 L MCH 28 MCHC 34.0 RDW 14.2 Plt Count 125 L MPV 10.6 Neut % (Auto) 72.7 Lymph % (Auto) 16.5 L [place] % (Auto) 7.4 Eos % (Auto) 2.3 Baso % (Auto) 0.6 Neut # (Auto) 5.6 Lymph # (Auto) 1.3 L [place] # (Auto) 0.6 Eos # (Auto) 0.2 Baso # (Auto) 0.1 Immature Gran % 0.5 Nucleated RBC % 0.0 Immature Gran # 0.04 Nucleated RBCs # 0.00 INR PT Patient/Control Mix Sodium Potassium Chloride Carbon Dioxide Anion Gap BUN Creatinine GFR Calculation BUN/Creatinine Ratio Glucose POC Glucose 321 H Calculated Osmolality Calcium Magnesium Total Creatine Kinase 37 CK-MB (CK-2) < 1.0 Troponin I < 0.015 12/29/16 12/29/16 12/29/16 02:22 02:22 07:30 WBC RBC Hgb Hct MCV MCH MCHC RDW Plt Count MPV Neut % (Auto) Lymph % (Auto) [place] % (Auto) Eos % (Auto) Baso % (Auto) Neut # (Auto) Lymph # (Auto) [place] # (Auto) Eos # (Auto) Baso # (Auto) Immature Gran % Nucleated RBC % Immature Gran # Nucleated RBCs # INR 1.5 PT Patient/Control Mix 16.7 D Sodium 136 Potassium 3.9 Chloride 101 Carbon Dioxide 24 Anion Gap 14.9 BUN 12 Creatinine 0.90 GFR Calculation 65 BUN/Creatinine Ratio 13.00 Glucose 271 H POC Glucose 232 H Calculated Osmolality 281.0 Calcium 9.0 Magnesium 2.0 Total Creatine Kinase CK-MB (CK-2) Troponin I - EKG EKG results: interpreted by me
[2016-12-29] MEDS: ATORVASTATIN 40 MG TABLET PO SCH (20:47)
[2016-12-29] MEDS: INSULIN GLARGINE 100 UNIT/ML SUBCUT SCH (21:03)
[2016-12-30 05:23] LABS: Basophils # 0.1 10*3/uL (0.0-0.2); Basophils % 0.6 % (0.0-0.8); Eosinophils # 0.2 10*3/uL (0.0-0.87); Eosinophils % 2.9 % (0.00-10.9); Hematocrit 33.8 VOL% (35.7-47.0); Hemoglobin 11.6 GM/DL (12.0-16.0); Immature Granulocytes % 0.5 %; Immature Granulocytes Absolute 0.04 #; Lymphocytes # 1.2 10*3/uL (1.4-4.0); Lymphocytes % 15.2 % (21.3-54.2); Mean Corpuscular HGB Conc 34.3 GM/DL (32-36); Mean Corpuscular Hemoglobin 28 PG (27-34); Mean Corpuscular Volume 80.7 FL (87-102); Monocytes # 0.5 10*3/uL (0.11-0.8); Neutrophils % 74.8 % (38.7-73.9); Platelet Count 141 T/CUMM (130-400); Red Blood Count 4.19 MC/CUMM (3.8-5.5); Red Cell Distribution Width 14.2 % (9.3-17.3)
[2016-12-30 05:32] LABS: INR 1.6; PT Patient Result 17.4 SECS
[2016-12-30 05:49] LABS: Calcium 8.7 MG/DL (8.5-10.1); Osmolality,Calculated 279.8 MOS/KG (273-304)
[2016-12-30] MEDS: LEVOTHYROXINE 100 MCG TABLET PO SCH (06:22)
[2016-12-30 07:42] VITALS: BP 138/76
--- NOTE | 2016-12-30 08:11 | EKG Report ---
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
[2016-12-30] MEDS: FUROSEMIDE 40 MG TABLET PO SCH (08:48)
[2016-12-30] MEDS: DILTIAZEM CD 120 MG CAPSULE PO SCH (08:48)
[2016-12-30] MEDS: PANTOPRAZOLE 40 MG TABLET PO SCH (08:48)
[2016-12-30] MEDS: sitaGLIPtin 100 MG TABLET PO SCH (08:48)
[2016-12-30] MEDS: CLOPIDOGREL 75 MG TABLET PO SCH (08:48)
[2016-12-30] MEDS: SOTALOL 80 MG TABLET PO SCH (08:48)
[2016-12-30] MEDS: GLIMEPIRIDE 4 MG TABLET PO SCH (08:48)
[2016-12-30] MEDS: MAGNESIUM OXIDE 400 MG TABLET PO SCH (08:48)
[2016-12-30] MEDS: COLESTIPOL 1 GM TABLET PO SCH (08:51)
[2016-12-30] MEDS: INSULIN REGULAR 100 UNIT/ML SUBCUT SCH (09:08)
[2016-12-30] MEDS: ASPIRIN EC 81 MG TABLET PO SCH (09:09)
--- NOTE | 2016-12-30 09:39 | Discharge Summary ---
Hospital Course - Hospital Course Hospital Course: 81-year-old female, with CAD, status post recent PCI, mild pulmonary hypertension, no significant diastolic dysfunction, dual-chamber pacemaker, paroxysmal atrial fibrillation. She was admitted with atrial fibrillation/ flutter/RVR. She is converted back to atrial paced rhythm promptly. She is feeling better. Pacemaker interrogation shows episodes of A. fib/flutter, RVR. She had mild acute kidney injury on admission, which resolved. -Rhythm control was pursued with sotalol. GFR around 50-60, we will continue 80 mg twice daily. There was no QTc prolongation or proarrhythmia noted. -She is anticoagulated with Coumadin. INR was subtherapeutic, the dose was increased. We will discharge her on 5 mg daily. Continue dual antiplatelets for recent PCI. There were no signs of active ischemia or bleeding issues. -Discharge home today. -Follow-up with Coumadin clinic in 1 week, follow up with Dr. Levy with a BMP/ magnesium, EKG check in 2 week Diagnosis - Discharge Diagnosis (1) Atrial fibrillation with rapid ventricular response Status: Resolved (2) Diabetes mellitus Status: Chronic (3) Tachy-kori syndrome Status: Acute (4) Hypertension Status: Chronic (5) GERD (gastroesophageal reflux disease) Status: Acute Specialty Discharge - Follow Up or Referrals Discharge Plan - Discharge Data Disposition: Disch To Home/Self Care Condition at Discharge: Stable Discharge Diet: advance to your usual diet, heart healthy Hygiene: no restrictions Weight Bearing at Discharge: full weight bearing Driving: no restrictions Contact your physician if you experience:: fever over 101, Difficulty voiding, Redness or swelling, Nausea/Vomiting, Shortness of breath, Bleeding, pain uncontrolled by pain medications - Discharge Medications New Clopidogrel [Plavix] 75 mg PO DAILY #90 tablet Magnesium Oxide 400 mg PO BID tablet Sotalol [Betapace] 80 mg PO BID #180 tablet Aspirin EC Tab 81 mg PO DAILY #90 tablet Continue Levothyroxine Tab [Synthroid Tab] 100 mcg PO DAILY sitaGLIPtin [Januvia] 100 mg PO DAILY Atorvastatin [Lipitor] 40 mg PO BEDTIME #30 tablet Furosemide Tab [Lasix Tab] 40 mg PO DAILY #30 tablet dilTIAZem HCl [Diltiazem ER (24 hr)] 120 mg PO DAILY #30 capsule Mirabegron [Myrbetriq] 25 mg PO DAILY Insulin Detemir [Levemir] 35 unit SUBCUT BEDTIME Colestipol [Colestid] 2 gm PO BID PRN PRN Reason: Constipation Pantoprazole Tab [Protonix Tab] 40 mg PO DAILY #30 tablet Ferrous Sulfate 325 mg PO DAILY Glimepiride 4 mg PO BID Changed Warfarin [Coumadin] 5 mg PO DAILY #30 Discontinued Metoprolol Tartrate 25 mg PO BID Magnesium Oxide 400 mg PO BID Levofloxacin Tab [Levaquin Tab] 500 mg PO DAILY #6 tablet - Follow Up or Referral Follow Up: Margret Levy DO [Physician] - 2 Weeks (FU with coumadin clinic in [address] Levy in 2 weeks, with BMP/Mg, ECG) - Forms/Instructions Instructions: Warfarin (By mouth) Exam - Constitutional Vitals: Period Temp Pulse Resp BP Sys/Petty Pulse Ox Last 24 Hr 97.2 F-97.9 F 59-66 18-20 121-152/61-76 94-99 General appearance: normal weight, over weight - Head Head exam: Present: normal inspection, normocephalic - Eye Eye exam: Absent: conjunctival injection Pupils: Absent: dilated - ENT ENT exam: Present: normal external ear exam - Neck Neck exam: Present: normal inspection - Respiratory Respiratory exam: Present: clear to auscultation bilaterally. Absent: prolonged expiratory phase - Cardiovascular Cardiovascular exam: Present: regular rate and rhythm, systolic murmur - GI/Abdominal GI/Abdominal exam: Present: normal bowel sounds - Extremities Exam Extremities exam: Present: normal inspection, normal capillary refill. Absent: edema - Back Exam Back exam: Present: normal inspection - Neurological Exam Neurological exam: Present: alert, oriented X3 - Psychiatric Psychiatric exam: Present: normal affect, normal mood - Skin Skin exam: Present: normal color, warm. Absent: cyanosis Discharge Results Procedures and tests throughout hospitalization: Pending Orders 12/31/16 04:00 BMP w/ Mg [Basic Metabolic Panel w/Mg] IN AM CBC [Comp Blood Count Auto Diff] IN AM PT [Prothrombin Time] IN AM Labs on day of discharge: Labs from last 24 hours 12/30/16 12/30/16 12/30/16 06:45 03:50 03:50 WBC RBC Hgb Hct MCV MCH MCHC RDW Plt Count MPV Neut % (Auto) Lymph % (Auto) [place] % (Auto) Eos % (Auto) Baso % (Auto) Neut # (Auto) Lymph # (Auto) [place] # (Auto) Eos # (Auto) Baso # (Auto) Immature Gran % Nucleated RBC % Immature Gran # Nucleated RBCs # INR 1.6 PT Patient/Control Mix 17.4 Sodium 137 Potassium 4.0 Chloride 100 Carbon Dioxide 28 Anion Gap 13.0 BUN 17 Creatinine 1.00 GFR Calculation 57 BUN/Creatinine Ratio 17.00 Glucose 197 H POC Glucose 205 H Calculated Osmolality 279.8 Calcium 8.7 Magnesium 2.0 12/30/16 12/29/16 12/29/16 03:50 20:44 16:15 WBC 8.0 RBC 4.19 Hgb 11.6 L Hct 33.8 L MCV 80.7 L MCH 28 MCHC 34.3 RDW 14.2 Plt Count 141 MPV 11.0 Neut % (Auto) 74.8 H Lymph % (Auto) 15.2 L [place] % (Auto) 6.0 Eos % (Auto) 2.9 Baso % (Auto) 0.6 Neut # (Auto) 6.0 Lymph # (Auto) 1.2 L [place] # (Auto) 0.5 Eos # (Auto) 0.2 Baso # (Auto) 0.1 Immature Gran % 0.5 Nucleated RBC % 0.0 Immature Gran # 0.04 Nucleated RBCs # 0.00 INR PT Patient/Control Mix Sodium Potassium Chloride Carbon Dioxide Anion Gap BUN Creatinine GFR Calculation BUN/Creatinine Ratio Glucose POC Glucose 123 H 165 H Calculated Osmolality Calcium Magnesium 12/29/16 11:13 WBC RBC Hgb Hct MCV MCH MCHC RDW Plt Count MPV Neut % (Auto) Lymph % (Auto) [place] % (Auto) Eos % (Auto) Baso % (Auto) Neut # (Auto) Lymph # (Auto) [place] # (Auto) Eos # (Auto) Baso # (Auto) Immature Gran % Nucleated RBC % Immature Gran # Nucleated RBCs # INR PT Patient/Control Mix Sodium Potassium Chloride Carbon Dioxide Anion Gap BUN Creatinine GFR Calculation BUN/Creatinine Ratio Glucose POC Glucose 329 H Calculated Osmolality Calcium Magnesium - Imaging and Cardiology Cardiology Procedure: image reviewed by me, report reviewed by me DS: Provider Date of admission: 12/27/16 23:16 Primary care physician: Santana Calles MD Attending physician on admission: Margret Levy DO Discharging clinician: Jorge Mcconnell MD Expected date of discharge: 12/30/16
== END 2016-12-30 12:40 | disposition home or self-care (01) | DRG 310 ==
LOC: N.ED 20:52 → N.EDINP 23:16 → N.TELES 23:39
PROVIDERS: ADMIT Internal Medicine Cardiovascular Disease; ATTEND Internal Medicine Cardiovascular Disease

== ENCOUNTER 2017-04-12 12:40 | Inpatient (IN) ==
[~2017-04-12 12:40] MED LIST: LIDOCAINE 100 MG/5 ML SYRINGE ONE; PROPOFOL 200 MG/20 ML VIAL IV ONE
[2017-04-12] MEDS ORDERED: PANTOPRAZOLE 40 MG TABLET PO ONE (13:15)
[2017-04-12] MEDS ORDERED: PANTOPRAZOLE 40 MG TABLET PO SCH (13:16)
[2017-04-12] MEDS ORDERED: LACTATED RINGERS 1,000 ML IV SCH (13:30)
[2017-04-12 13:31] LABS: Basophils # 0.1 10*3/uL (0.0-0.2); Eosinophils # 0.2 10*3/uL (0.0-0.87); Hematocrit 33.6 VOL% (35.7-47.0); Hemoglobin 11.4 GM/DL (12.0-16.0); Immature Granulocytes % 0.4 %; Immature Granulocytes Absolute 0.02 #; Lymphocytes # 1.4 10*3/uL (1.4-4.0); Lymphocytes % 27.8 % (21.3-54.2); Mean Corpuscular HGB Conc 33.9 GM/DL (32-36); Mean Corpuscular Hemoglobin 28 PG (27-34); Mean Corpuscular Volume 83.8 FL (87-102); Monocytes # 0.3 10*3/uL (0.11-0.8); Monocytes % 5.5 % (1.7-12.7); Neutrophils # 3.2 10*3/uL (1.4-7.4); Neutrophils % 62.3 % (38.7-73.9); Platelet Count 170 T/CUMM (130-400); Red Blood Count 4.01 MC/CUMM (3.8-5.5); Red Cell Distribution Width 14.2 % (9.3-17.3); White Blood Count 5.1 T/CUMM (4-12)
--- NOTE | 2017-04-12 13:34 | EKG Report ---
Stationary ECG Study [facility] Test Date: 04/12/2017 1:31:34 PM Pat Name: JANETTE HERRERA Department: Room: 614 Gender: F Motor [employer]: SAJI : 1935 Requested by: Andi Carney Order Number: [id number] Reading MD: WESLEY NIEVES Intervals [place] Rate: 61 P: 92 AL: 184 QRS: 0 QRSD: 85 T: 262 QT: 450 QTc: 453 Interpretive Statements ELECTRONIC ATRIAL PACEMAKER ST DEVIATION AND MODERATE T-WAVE ABNORMALITY, CONSIDER ANTEROLATERAL ISCHEMIA ST DEVIATION AND MODERATE T-WAVE ABNORMALITY, CONSIDER INFERIOR ISCHEMIA Electronically Signed On 04-12-17 16:08:38 CDT by WESLEY NIEVES [email or web address]
--- NOTE | 2017-04-12 13:46 | XRay Report ---
Exam: XR chest 1V portable Date: 04/12/2017 1:11 PM Indication: Respiratory preop evaluation of the chest Comparison: 03/02/2017 Technical: AP Findings: Mild prominence the cardiac silhouette with cardiac pacing device with atrial ventricular leads. ASVD is present. Surgical clips present right axillary region. No obvious infiltrate or effusion. Mediastinum is intact the bony structures are unremarkable. Impression: 1. No acute cardiothoracic pathology with stable appearance the cardiac pacer device 2. Previous axillary dissection 3. ASVD. PROCEDURE INTERPRETED AT [facility] DEPARTMENT OF RADIOLOGY Final Report Signed by: Dr. Antony Gong
[2017-04-12] MEDS: LACTATED RINGERS 1,000 ML IV SCH ×2 (13:49→22:08)
[2017-04-12 14:03] LABS: Potassium 3.5 MMOL/L (3.5-5.1)
[2017-04-12 14:07] LABS: PT Patient Result 10.5 SECS; Partial Thromboplastin Time 26.3 SECS (0-40)
[2017-04-12] MEDS ORDERED: oxyCODONE/ACETAMINOPHEN 5-325 MG TABLET PO PRN ×2 (14:39)
[2017-04-12] MEDS ORDERED: ONDANSETRON 4 MG/2 ML VIAL IV PRN (14:39)
[2017-04-12] MEDS ORDERED: PROMETHAZINE 25 MG/1 ML VIAL IM PRN (14:39)
[2017-04-12] MEDS ORDERED: HYDROmorphone 2 MG/1 ML VIAL IV PRN (14:39)
[2017-04-12] MEDS ORDERED: MAGNESIUM HYDROXIDE SUSP 30 ML UDCUP PO PRN (14:39)
[2017-04-12] MEDS ORDERED: BISACODYL 10 MG SUPP RECTAL PRN (14:39)
[2017-04-12] MEDS ORDERED: LACTULOSE 20 GM/30 ML UDCUP PO PRN (14:39)
[2017-04-12] MEDS ORDERED: DEXTROSE 50% 25 GM/50 ML SYRINGE IV PRN ×2 (14:45→16:01)
[2017-04-12] MEDS ORDERED: GLUCAGON 1 MG VIAL IM PRN ×3 (14:45→16:02)
--- NOTE | 2017-04-12 14:48 | Anesthesia Post-Op ---
Anesthesia Post OP - Post Ansesthetic Evaluation Patient seen in post op: Yes Resp: within normal limits CV: within normal limits Mental: within normal limits Temp: within normal limits Dtdb-[id number]: within normal limits Nausea and Vomiting: within normal limits Pain: within normal limits
[2017-04-12] MEDS ORDERED: SEVOFLURANE 1 UNIT/15 MINUTE INH ONE (14:50)
[2017-04-12] MEDS ORDERED: fentaNYL 100 MCG/2 ML VIAL ONE (14:50)
--- NOTE | 2017-04-12 15:53 | Hospitalist Consult Note ---
Addendum entered and electronically signed by Anderson Chan CNP 04/12/17 15 :58: In addition, the patient has a medical history significant for obstructive sleep apnea, pulmonary hypertension, chronic urinary tract infections, hemorrhoids, chronic arthritis, anemia, and breast cancer. Patient surgical history significant for cataract removal, partial thyroidectomy, appendectomy, cholecystectomy, right mastectomy, colonoscopy, esophagogastroduodenoscopy, hysterectomy, and bladder tack with mesh placement. Bronchitis, Obstructive Sleep Apnea (doesnt use Cpap), Pulmonary Hypertension Genitourinary: History of: Bladder Problem (has had Bladder surgery), Recurring Urinary Tract Infections (frequent bladder infections), Problems (Bladder mesh) Gastrointestinal: History of: GERD, Hemorrhoids, GI Problems (diarrhea, dysphagia) Musculoskeletal: History of: Back/Neck Problems (arthritis) Hematology: History of: Anemia No history of: Blood Transfusion Reaction Reproductive: History of: Breast Cancer (right mastectomy-2004) Other: History of: Cancer (breast cancer) No history of: Anesthesia Reactions - Surgical History Cardiac Surgeries: Sugical HX of: Cardiac Catheterization Patient Denies: Carotid Endarterectomy HEENT Surgeries: Surgical HX of: Eye Surgery (cataracts), Thyroid Surgery (lt. thyroid) Patient denies: Carotid Endarterectomy Abdominal Surgeries: Surgical HX of: Appendectomy, Cholecystectomy, Colonoscopy , EGD Reproductive Surgeries: Surgical HX of;: Breast Surgery (rt. mastectomy), Genitourinary Surgery (bladder tack), Hysterectomy Orthopedic Surgeries: Original Note: Assessment and Plan - Time spent with patient Time spent with patient: Less than 30 minutes (1) Diabetes mellitus Status: Chronic Assessment and plan: We will obtain hemoglobin A1c and start Accu-Cheks with sliding scale coverage Current Visit: No (2) Dyslipidemia Status: Chronic Assessment and plan: We will obtain lipid panel resume home medications as previously ordered. Current Visit: No (3) Hypertension Status: Chronic Assessment and plan: We will resume home medications as previously ordered. We will provide supportive care during the clinical encounter. Current Visit: No History of Present Illness - Consult Narrative Reason for consult: Medical management History of present illness: This is a very pleasant 81-year-old female that presented to [facility] today for the elective incision and drainage of the left thigh secondary to hematoma formation. The patient has a medical history significant for coronary artery disease, hypertension, hyperlipidemia, hypothyroidism, gastroesophageal reflux disease, and overactive bladder disease. Patient is a surgical history significant for pacemaker placement, cardiac catheterization with subsequent stent placement. Apparently, the patient reported that she sustained a fall 5 weeks ago injuring her right thigh for which she was evaluated. After several weeks, the patient failed to improve and the presence of a hematoma was discovered and surgical intervention was needed. Today, the patient underwent incision and drainage of the left thigh under the direction of Dr. Carney. Hospital medicine was consulted for medical management. CC: Andi Carney Jr., MD - Home Medications and Allergies Home Medications: Home Medications Medication Instructions Recorded Confirmed Type Levothyroxine Tab [Synthroid Tab] 100 mcg PO QAM 03/24/15 04/12/17 History Insulin Detemir [Levemir] 40 unit SUBCUT BEDTIME 09/12/16 04/12/17 History Mirabegron [Myrbetriq] 25 mg PO BEDTIME 09/12/16 04/12/17 History sitaGLIPtin [Januvia] 100 mg PO QAM 09/12/16 04/12/17 History Atorvastatin [Lipitor] 40 mg PO BEDTIME #30 tablet 10/26/16 04/12/17 Rx Ferrous Sulfate 325 mg PO BEDTIME 11/29/16 04/12/17 History Glimepiride 4 mg PO BID 11/30/16 04/12/17 History Magnesium Oxide 400 mg PO BID tablet 12/30/16 04/12/17 Rx Sotalol [Betapace] 80 mg PO BID #180 tablet 12/30/16 04/12/17 Rx Aspirin EC Tab 81 mg PO BEDTIME 04/09/17 04/12/17 History Clopidogrel [Plavix] 75 mg PO BEDTIME 04/09/17 04/12/17 History Furosemide Tab [Lasix Tab] 40 mg PO BEDTIME 04/09/17 04/12/17 History Insulin Regular, Human [NovoLIN R] 0 unit SUBCUT ACHS PRN 04/09/17 04/12/17 History Pantoprazole Tab [Protonix Tab] 40 mg PO QAM 04/09/17 04/12/17 History dilTIAZem HCl [Diltiazem ER (24 120 mg PO BEDTIME 04/09/17 04/12/17 History hr)] Tramadol HCl [Tramadol Tab] 50 mg PO Q6H PRN 04/12/17 04/12/17 History cephALEXin [Keflex] 500 mg PO Q12HR 04/12/17 04/12/17 History Allergies/Adverse Reactions: Allergies Allergy/AdvReac Type Severity Reaction Status Date / Time adhesive tape Allergy Intermediate RASH Verified 04/12/17 13:11 codeine AdvReac Intermediate Vomiting Verified 04/12/17 13:11 morphine AdvReac Intermediate Vomiting Verified 04/12/17 13:11 cephalexin [From Keflex] AdvReac Diarrhea Verified 04/12/17 13:11 pioglitazone [From Actos] AdvReac Diarrhea Verified 04/12/17 13:11 Medical,Surgical,& Family Hx - Medical History Cardio: History of: Cardiac Dysrhythmia (atrial fib), CAD, Hypertension, Pacemaker (type unknown placed by Dr. Avelar at [facility]) Neurology: No history of: Seizures HEENT: History of: Ear Problem (hard of hearing), HEENT Problems (bilateral cataract) Endocrine: History of: Diabetes Mellitus (IDDM), Thyroid Disorder ( hypothyroidism) No history of: Diabetes Mellitus (NIDDM) Respiratory: History of: Bronchitis, Obstructive Sleep Apnea (doesnt use Cpap), Pulmonary Hypertension Genitourinary: History of: Bladder Problem (has had Bladder surgery), Recurring Urinary Tract Infections (frequent bladder infections), Problems (Bladder mesh) Gastrointestinal: History of: GERD, Hemorrhoids, GI Problems (diarrhea, dysphagia) Musculoskeletal: History of: Back/Neck Problems (arthritis) Hematology: History of: Anemia No history of: Blood Transfusion Reaction Reproductive: History of: Breast Cancer (right mastectomy-2004) Other: History of: Cancer (breast cancer) No history of: Anesthesia Reactions - Surgical History Cardiac Surgeries: Sugical HX of: Cardiac Catheterization Patient Denies: Carotid Endarterectomy HEENT Surgeries: Surgical HX of: Eye Surgery (cataracts), Thyroid Surgery (lt. thyroid) Patient denies: Carotid Endarterectomy Abdominal Surgeries: Surgical HX of: Appendectomy, Cholecystectomy, Colonoscopy , EGD Reproductive Surgeries: Surgical HX of;: Breast Surgery (rt. mastectomy), Genitourinary Surgery (bladder tack), Hysterectomy Orthopedic Surgeries: Patient denies;: Orthopedic Surgery - Family History Family History: Reports;: Family Cancer (father), Family Diabetes (grandmother) , Family Heart Disease (mother ([place]), Father), Family Hypertension (Father, Mother, Son), Family Stroke (Mother) - Social History Smoking Status: Never smoker Have you smoked in the last 12 months: No Frequency of Alcohol Use: None Type of Drug Use: None Marital Status: Lives With:: Spouse Functional capacity: wheelchair bound 12 point system: reviewed and no additional remarkable complaints except as stated Exam - Constitutional Vitals: Period Temp Pulse Resp BP Sys/Petty Pulse Ox Last 24 Hr 97.0 F-97.2 F 61-66 16-18 125-149/58-72 99-100 General appearance: normal weight, no acute distress - Head Head exam: Present: normal inspection, normocephalic, atraumatic - Eye Eye exam: Present: EOMI. Absent: conjunctival injection Pupils: Present: ISELA, normal accommodation - ENT ENT exam: Present: normal exam, normal external ear exam, normal oropharynx - Neck Neck exam: Present: normal inspection. Absent: lymphadenopathy, meningismus, tenderness, thyromegaly - Respiratory Respiratory exam: Present: clear to auscultation bilaterally. Absent: rales, rhonchi, stridor, wheezes - Cardiovascular Cardiovascular exam: Present: regular rate and rhythm. Absent: carotid bruit, diastolic murmur, gallop, JVD, rubs, systolic murmur - GI/Abdominal GI/Abdominal exam: Present: normal bowel sounds, soft - Extremities Exam Extremities exam: Present: normal capillary refill, other (Compression dressing noted to left thigh; pulses present distally.) - Back Exam Back exam: Present: normal inspection - Neurological Exam Neurological exam: Present: alert, oriented X3, CN II-XII intact - Psychiatric Psychiatric exam: Present: normal affect, normal mood - Skin Skin exam: Present: normal color, warm, dry Results - Labs CBC & BMP: 04/12/17 13:27 04/12/17 13:27 Lab Results: I have reviewed the past 24 hour labs
[2017-04-12] MEDS ORDERED: traMADol 50 MG TABLET PO PRN (16:00)
[2017-04-12] MEDS ORDERED: DEXTROSE 50% 25 GM/50 ML VIAL IV PRN (16:02)
[2017-04-12] MEDS: CLINDAMYCIN INJ 900 MG in PREMIX 1 EACH IV SCH (18:41)
[2017-04-12] MEDS: INSULIN REGULAR 100 UNIT/ML SUBCUT SCH ×4 (18:42→22:14)
--- NOTE | 2017-04-12 20:18 | Operative Note ---
DATE: 04/12/2017 PREOPERATIVE DIAGNOSIS: HEMATOMA, LEFT THIGH. POSTOPERATIVE DIAGNOSIS: SAME. OPERATIVE PROCEDURE: Irrigation and debridement with evacuation of left thigh hematoma. SURGEON: Andi Carney Jr., MD ANESTHESIA: General. OPERATIVE PROCEDURE: The patient was taken to the operating and under general anesthetic, positioned supine position. The left leg positioned, prepped and draped in a usual sterile manner. She had an eschar measuring about 3 x 3 cm, which was excised. This allowed direct exposure into the hematoma c avity, which was approximately 14 cm long and about 10 cm wide, extension from the eschar was extende d proximally about 6 cm, so thorough debridement could be carried out. Three-liter pulse lavage irri gation was also used. The hematoma was cleaned up in all directions and the surgical incision extend ed proximally was closed with an interrupted nylon suture through the 3 x 3 eschar hole, the wound wa s packed with sterile gauze Kerlix. A sterile dressing was applied. Plan will be for starting on dr ramya berrios on this hospitalization. She was awakened and taken to recovery room in stable condit ion. ESTIMATED BLOOD LOSS: 50 cc. COUNTS: Correct.
[2017-04-12] MEDS ORDERED: NON-FORMULARY MEDICATION (Mirabegron [Myrbetriq] 25 MG) PO SCH (21:00)
[2017-04-12] MEDS: ATORVASTATIN 40 MG TABLET PO SCH (22:10)
[2017-04-12] MEDS: FUROSEMIDE 40 MG TABLET PO SCH (22:10)
[2017-04-12] MEDS: CLOPIDOGREL 75 MG TABLET PO SCH (22:11)
[2017-04-12] MEDS: FERROUS SULFATE 325 MG TABLET PO SCH (22:11)
[2017-04-12] MEDS: MAGNESIUM OXIDE 400 MG TABLET PO SCH (22:11)
[2017-04-12] MEDS: SOTALOL 80 MG TABLET PO SCH (22:12)
[2017-04-12] MEDS: DILTIAZEM CD 120 MG CAPSULE PO SCH (22:12)
[2017-04-12] MEDS: INSULIN GLARGINE 100 UNIT/ML SUBCUT SCH (22:13)
[2017-04-13] MEDS: CLINDAMYCIN INJ 900 MG in PREMIX 1 EACH IV SCH ×3 (02:43→17:46)
[2017-04-13] MEDS: INSULIN REGULAR 100 UNIT/ML SUBCUT SCH ×8 (08:20→22:22)
--- NOTE | 2017-04-13 08:49 | Orthopedic Progress Note ---
Orthopedics - Subjective Interval history: Comfortable dressing is dry discussed with she and family are operative findings will start wet-to-dry dressing changes in the a.m. also will likely set up for home health upon discharge. Appreciate medical help regarding diabetes and other medical comorbidities. Exam - Constitutional Vitals: Period Temp Pulse Resp BP Sys/Petty Pulse Ox Last 24 Hr 95.7 F-98.5 F 59-67 16-18 109-149/46-72 96-100 Results - Labs CBC & BMP: 04/12/17 13:27 04/12/17 13:27
--- NOTE | 2017-04-13 10:24 | Hospitalist Progress Note ---
Assessment and Plan (1) Diabetes mellitus Status: Chronic Assessment and plan: We will obtain hemoglobin A1c and start Accu-Cheks with sliding scale coverage. 04/12-hemoglobin A1c noted at 7.3. We will continue Accu-Cheks with sliding scale coverage as previously ordered. Current Visit: No (2) Dyslipidemia Status: Chronic Assessment and plan: We will obtain lipid panel resume home medications as previously ordered. Current Visit: No (3) Hypertension Status: Chronic Assessment and plan: We will resume home medications as previously ordered. We will provide supportive care during the clinical encounter. Current Visit: No Hospitalist: Subjective Interval history: Patient seen and examined; chart reviewed. No significant overnight events reported per staff. Postoperative day #2 status post I&D of the left hip. Hemoglobin A1c noted at 7.3. Exam - Constitutional Vitals: Period Temp Pulse Resp BP Sys/Petty Pulse Ox Last 24 Hr 95.7 F-98.5 F 59-67 16-18 109-149/46-72 96-100 General appearance: normal weight, no acute distress - Head Head exam: Present: normal inspection, normocephalic - Eye Eye exam: Present: EOMI. Absent: conjunctival injection Pupils: Present: ISELA, normal accommodation - ENT ENT exam: Present: normal exam, normal external ear exam, normal oropharynx - Neck Neck exam: Present: normal inspection. Absent: lymphadenopathy, meningismus, tenderness, thyromegaly - Respiratory Respiratory exam: Present: clear to auscultation bilaterally. Absent: rales, rhonchi, stridor, wheezes - Cardiovascular Cardiovascular exam: Present: regular rate and rhythm. Absent: carotid bruit, diastolic murmur, gallop, JVD, rubs, systolic murmur - GI/Abdominal GI/Abdominal exam: Present: normal bowel sounds, soft - Extremities Exam Extremities exam: Present: normal capillary refill, other (Compression dressing noted to left hip). Absent: edema - Back Exam Back exam: Present: normal inspection - Neurological Exam Neurological exam: Present: alert, oriented X3, CN II-XII intact - Psychiatric Psychiatric exam: Present: normal affect, normal mood - Skin Skin exam: Present: normal color, warm Results - Labs CBC & BMP: 04/12/17 13:27 04/12/17 13:27 Lab Results: I have reviewed the past 24 hour labs
[2017-04-13] MEDS: PANTOPRAZOLE 40 MG TABLET PO SCH (10:28)
[2017-04-13] MEDS: LEVOTHYROXINE 100 MCG TABLET PO SCH (10:28)
[2017-04-13] MEDS: sitaGLIPtin 100 MG TABLET PO SCH (10:29)
[2017-04-13] MEDS: SOTALOL 80 MG TABLET PO SCH ×2 (10:30→22:20)
[2017-04-13] MEDS: MAGNESIUM OXIDE 400 MG TABLET PO SCH ×2 (10:30→22:21)
[2017-04-13] MEDS: LACTATED RINGERS 1,000 ML IV SCH ×2 (17:44→22:15)
[2017-04-13] MEDS: GLIMEPIRIDE 4 MG TABLET PO SCH (22:13)
[2017-04-13] MEDS: DILTIAZEM CD 120 MG CAPSULE PO SCH (22:19)
[2017-04-13] MEDS: CLOPIDOGREL 75 MG TABLET PO SCH (22:20)
[2017-04-13] MEDS: FUROSEMIDE 40 MG TABLET PO SCH (22:20)
[2017-04-13] MEDS: ATORVASTATIN 40 MG TABLET PO SCH (22:20)
[2017-04-13] MEDS: INSULIN GLARGINE 100 UNIT/ML SUBCUT SCH (22:21)
[2017-04-13] MEDS: FERROUS SULFATE 325 MG TABLET PO SCH (22:21)
[2017-04-14] MEDS: CLINDAMYCIN INJ 900 MG in PREMIX 1 EACH IV SCH ×2 (00:23→08:46)
[2017-04-14 03:39] LABS: Basophils # 0.1 10*3/uL (0.0-0.2); Basophils % 0.6 % (0.0-0.8); Eosinophils # 0.1 10*3/uL (0.0-0.87); Eosinophils % 1.3 % (0.00-10.9); Hematocrit 30.2 VOL% (35.7-47.0); Hemoglobin 9.9 GM/DL (12.0-16.0); Immature Granulocytes % 0.6 %; Immature Granulocytes Absolute 0.05 #; Lymphocytes # 1.3 10*3/uL (1.4-4.0); Lymphocytes % 14.7 % (21.3-54.2); Mean Corpuscular HGB Conc 32.8 GM/DL (32-36); Mean Corpuscular Hemoglobin 28 PG (27-34); Mean Corpuscular Volume 84.4 FL (87-102); Monocytes # 0.8 10*3/uL (0.11-0.8); Monocytes % 8.9 % (1.7-12.7); Neutrophils # 6.4 10*3/uL (1.4-7.4); Neutrophils % 73.9 % (38.7-73.9); Platelet Count 131 T/CUMM (130-400); Red Blood Count 3.58 MC/CUMM (3.8-5.5); White Blood Count 8.7 T/CUMM (4-12)
[2017-04-14 04:42] LABS: Albumin 2.9 G/DL (3.4-5.0); Bilirubin,Total 0.6 MG/DL (0.2-1.0); Calcium 8.8 MG/DL (8.5-10.1); Magnesium 1.8 MG/DL (1.8-2.4); Osmolality,Calculated 271.8 MOS/KG (273-304); Phosphorous 3.5 MG/DL (2.5-4.9); Potassium 3.1 MMOL/L (3.5-5.1); Total Protein 6.4 G/DL (6.4-8.3)
[2017-04-14] MEDS: LACTATED RINGERS 1,000 ML IV SCH (06:58)
[2017-04-14] MEDS ORDERED: POTASSIUM CHLORIDE RIDER 10 MEQ in PREMIX 1 EACH IV PRN (07:15)
[2017-04-14] MEDS: INSULIN REGULAR 100 UNIT/ML SUBCUT SCH ×8 (07:58→21:41)
--- NOTE | 2017-04-14 08:45 | Orthopedic Progress Note ---
Orthopedics - Subjective Interval history: Wet-to-dry dressing change performed. Premedicated orally. Mobilize about the room will instruct again tomorrow and work on getting home health available. Hopefully discharged in the next day or 2 Exam - Constitutional Vitals: Period Temp Pulse Resp BP Sys/Petty Pulse Ox Last 24 Hr 96.7 F-99.1 F 59-62 18-20 105-126/40-58 92-98 Results - Labs CBC & BMP: 04/14/17 02:38 04/14/17 02:38
--- NOTE | 2017-04-14 08:48 | Hospitalist Progress Note ---
Assessment and Plan (1) Diabetes mellitus Status: Chronic Assessment and plan: We will obtain hemoglobin A1c and start Accu-Cheks with sliding scale coverage. 04/12-hemoglobin A1c noted at 7.3. We will continue Accu-Cheks with sliding scale coverage as previously ordered. 04/13-we will continue Accu-Cheks and sliding scale coverage as previously ordered. 04/14-we will continue Accu-Cheks with sliding scale coverage as previously ordered. Current Visit: No (2) Dyslipidemia Status: Chronic Assessment and plan: We will obtain lipid panel resume home medications as previously ordered. Current Visit: No (3) Hypertension Status: Chronic Assessment and plan: We will resume home medications as previously ordered. We will provide supportive care during the clinical encounter. Current Visit: No (4) Hypokalemia Status: Acute Assessment and plan: Potassium noted at 3.1 today. We will start electrolyte protocol replacement and correct deficit. We will check CMP in a.m. Current Visit: Yes Hospitalist: Subjective Interval history: Patient seen and examined; chart reviewed. No significant overnight events reported per staff. Potassium noted at 3.1. We will start electrolyte protocol and correct deficit. Patient is tolerating solid foods; we will discontinue IV fluids. Exam - Constitutional Vitals: Period Temp Pulse Resp BP Sys/Petty Pulse Ox Last 24 Hr 96.7 F-99.1 F 59-62 18-20 105-126/40-58 92-98 General appearance: normal weight, no acute distress - Head Head exam: Present: normal inspection, normocephalic, atraumatic - Eye Eye exam: Present: EOMI. Absent: conjunctival injection Pupils: Present: ISELA, normal accommodation - ENT ENT exam: Present: normal exam, normal external ear exam, normal oropharynx - Neck Neck exam: Present: normal inspection. Absent: lymphadenopathy, meningismus, tenderness, thyromegaly - Respiratory Respiratory exam: Present: clear to auscultation bilaterally. Absent: rales, rhonchi, stridor, wheezes - Cardiovascular Cardiovascular exam: Present: regular rate and rhythm. Absent: carotid bruit, diastolic murmur, gallop, JVD, rubs, systolic murmur - GI/Abdominal GI/Abdominal exam: Present: normal bowel sounds, soft - Extremities Exam Extremities exam: Present: other (Compression ingestion noted to right thigh.) - Back Exam Back exam: Present: normal inspection - Neurological Exam Neurological exam: Present: alert, oriented X3, CN II-XII intact - Psychiatric Psychiatric exam: Present: normal affect, normal mood - Skin Skin exam: Present: normal color, warm, dry Results - Labs CBC & BMP: 04/14/17 02:38 04/14/17 02:38 Lab Results: I have reviewed the past 24 hour labs
[2017-04-14] MEDS: MAGNESIUM OXIDE 400 MG TABLET PO SCH ×2 (08:52→21:36)
[2017-04-14] MEDS: LEVOTHYROXINE 100 MCG TABLET PO SCH (08:53)
[2017-04-14] MEDS: SOTALOL 80 MG TABLET PO SCH ×2 (08:53→21:35)
[2017-04-14] MEDS: PANTOPRAZOLE 40 MG TABLET PO SCH (08:54)
[2017-04-14] MEDS: sitaGLIPtin 100 MG TABLET PO SCH (08:54)
[2017-04-14] MEDS: GLIMEPIRIDE 4 MG TABLET PO SCH ×2 (08:57→21:36)
[2017-04-14] MEDS: FERROUS SULFATE 325 MG TABLET PO SCH (21:35)
[2017-04-14] MEDS: DILTIAZEM CD 120 MG CAPSULE PO SCH (21:35)
[2017-04-14] MEDS: FUROSEMIDE 40 MG TABLET PO SCH (21:36)
[2017-04-14] MEDS: INSULIN GLARGINE 100 UNIT/ML SUBCUT SCH (21:36)
[2017-04-14] MEDS: ATORVASTATIN 40 MG TABLET PO SCH (21:36)
[2017-04-14] MEDS: CLOPIDOGREL 75 MG TABLET PO SCH (21:36)
[2017-04-15 05:44] LABS: Basophils # 0.1 10*3/uL (0.0-0.2); Basophils % 0.7 % (0.0-0.8); Eosinophils # 0.1 10*3/uL (0.0-0.87); Eosinophils % 1.5 % (0.00-10.9); Hematocrit 29.4 VOL% (35.7-47.0); Hemoglobin 9.9 GM/DL (12.0-16.0); Immature Granulocytes % 0.6 %; Immature Granulocytes Absolute 0.05 #; Lymphocytes # 1.4 10*3/uL (1.4-4.0); Lymphocytes % 15.5 % (21.3-54.2); Mean Corpuscular HGB Conc 33.7 GM/DL (32-36); Mean Corpuscular Hemoglobin 28 PG (27-34); Mean Corpuscular Volume 83.5 FL (87-102); Mean Platelet Volume 10.6 FL (9.6-12.0); Monocytes # 0.7 10*3/uL (0.11-0.8); Neutrophils # 6.5 10*3/uL (1.4-7.4); Neutrophils % 73.7 % (38.7-73.9); Platelet Count 138 T/CUMM (130-400); Red Blood Count 3.52 MC/CUMM (3.8-5.5); Red Cell Distribution Width 14.1 % (9.3-17.3); White Blood Count 8.8 T/CUMM (4-12)
[2017-04-15 06:49] LABS: Albumin 2.8 G/DL (3.4-5.0); Bilirubin,Total 1.5 MG/DL (0.2-1.0); Osmolality,Calculated 275.7 MOS/KG (273-304); Phosphorous 3.8 MG/DL (2.5-4.9); Potassium 3.2 MMOL/L (3.5-5.1); Total Protein 6.5 G/DL (6.4-8.3)
[2017-04-15] MEDS: INSULIN REGULAR 100 UNIT/ML SUBCUT SCH ×4 (07:36→11:59)
--- NOTE | 2017-04-15 09:07 | Physician Query Form ---
CLICK EDIT DOCUMENT TO SELECT QUERY ANSWER --> OK --> SIGN Claudia Strange RN, CCDS Certified Clinical Grain Mixer W) [phone] (f) [phone] [email or web address]: Make your selection(s) from the choices in EACH section by typing an "x" and enter comments in the comment section. Please use your independent medical judgment in providing your response. This request does not imply that any particular answer is desired or expected. CLINICAL INDICATORS: (Providers should not edit this section) "She had an eschar measuring about 3 x 3 cm, which was excised. This allowed direct exposure into the hematoma cavity, which was approximately 14 cm long and about 10 cm wide, extension from the eschar was extended proximally about 6 cm, so thorough debridement could be carried out. Three-liter pulse lavage irrigation was also used. The hematoma was cleaned up in all directions and the surgical incision extended proximally was closed with an interrupted nylon suture through the 3 x 3 eschar hole, the wound was packed with sterile gauze Kerlix." Please provide further clarification regarding debridement: TYPE: ( x ) Excisional (cutting out tissue such as devitalized tissue, necrosis, or slough) ( ) Non-Excisional (removal of loose tissue fragments, scrubbing, Versajet) ( ) Incision & Drainage only performed DEPTH: ( ) Skin ( ) Subcutaneous tissue ( x ) Fascia ( ) Muscle ( ) Joint ( ) Tendon ( ) Bone ( ) Bursa & ligaments ( ) Nail ( ) Other, please specify: ( ) Clinically unable to determine REMOVED: ( ) Necrotic tissue ( ) Gangrenous tissue ( ) Slough ( ) Other, please specify: COMMENTS: PLEASE ALSO DOCUMENT RESPONSE IN PROGRESS NOTES AND/OR DISCHARGE SUMMARY Use of terms such as suspected, likely, or probable (associated with a specific diagnosis that is being evaluated, monitored, or treated as if it exists) are acceptable and can be restated in the discharge summary if not ruled out. MTDD
--- NOTE | 2017-04-15 09:32 | Orthopedic Progress Note ---
Orthopedics - Subjective Interval history: Comfortable. Mobilizing about room. Wound care here today to assist with the wet-to-dry dressings will also get home health involved possible discharge this afternoon if comfortable Exam - Constitutional Vitals: Period Temp Pulse Resp BP Sys/Petty Pulse Ox Last 24 Hr 97.1 F-98.8 F 60-67 16-20 108-128/51-64 93-98 Results - Labs CBC & BMP: 04/15/17 05:28 04/15/17 05:28
[2017-04-15] MEDS: MAGNESIUM OXIDE 400 MG TABLET PO SCH (10:24)
[2017-04-15] MEDS: sitaGLIPtin 100 MG TABLET PO SCH (10:24)
[2017-04-15] MEDS: SOTALOL 80 MG TABLET PO SCH (10:24)
[2017-04-15] MEDS: LEVOTHYROXINE 100 MCG TABLET PO SCH (10:24)
[2017-04-15] MEDS: PANTOPRAZOLE 40 MG TABLET PO SCH (10:25)
[2017-04-15] MEDS: GLIMEPIRIDE 4 MG TABLET PO SCH (10:25)
--- NOTE | 2017-04-15 11:38 | Hospitalist Progress Note ---
Assessment and Plan (1) Hematoma Status: Acute Assessment and plan: s/p evacuation by Dr. Carney. Wound dressing changes done and patient and family received education. Home Health being set up. Current Visit: Yes (2) Diabetes mellitus Status: Chronic Current Visit: No Qualifiers: Diabetes mellitus type: type 2 Diabetes mellitus complication status: with hyperglycemia (3) Hypertension Status: Chronic Current Visit: Yes Qualifiers: Hypertension type: essential hypertension Qualified Code(s): I10 - Essential (primary) hypertension Hospitalist: Subjective Interval history: Patient seen and examined. No acute events overnight. Case discussed with nursing staff. Labs reviewed. Planning for discharge later today. Wound care education has been done this morning. Exam - Constitutional Vitals: Period Temp Pulse Resp BP Sys/Petty Pulse Ox Last 24 Hr 97.1 F-98.8 F 60-67 16-20 108-128/51-64 93-98 Exam: Constitutional System: No distress. No tremulousness. Head: Normocephalic, atraumatic. Ears, Nose and Throat System: No pain or tenderness. No epistaxis or discharge Eyes System: Pupils equal, round, and reactive. Extraocular muscles intact. Neck: Supple, without adenopathy, No jugular venous distention. Respiratory System: Chest clear to auscultation. Cardiovascular System: Heart with regular rate and rhythm. No murmur. GI System: Abdomen soft, nontender. Normo active bowel sounds present. Musculoskeletal System: Left lower extremity with mild pedal edema. Full distal pulses. Normal capillary refill. Wound dressing in place Neurological System: No discernable sensory deficit. No aphasia Psychiatric System: Conversation is rational Results - Labs CBC & BMP: 04/15/17 05:28 04/15/17 05:28 Lab Results: I have reviewed the past 24 hour labs Specialty Discharge - Follow Up or Referrals Follow up with: Andi Carney Jr., MD [Physician] -
[2017-04-15 12:16] VITALS: BP 115/48
--- NOTE | 2017-04-15 12:32 | Orthopedic Progress Note ---
Orthopedics - Subjective Interval history: Tolerated dressing change well will discharge today has been instructed in home health being organized. Exam - Constitutional Vitals: Period Temp Pulse Resp BP Sys/Petty Pulse Ox Last 24 Hr 97.1 F-98.8 F 60-67 16-20 108-128/48-64 93-99 Results - Labs CBC & BMP: 04/15/17 05:28 04/15/17 05:28 Specialty Discharge - Follow Up or Referrals Follow up with: Andi Carney Jr., MD [Physician] -
--- NOTE | 2017-04-15 12:34 | Discharge Summary ---
Hospital Course - Hospital Course Hospital Course: Admitted for hematoma requiring drainage has been instructed on wet-to-dry dressing changes and discharged home with home health Diagnosis - Discharge Diagnosis (1) Traumatic hematoma of left lower leg Status: Acute Specialty Discharge - Follow Up or Referrals Follow up with: Andi Carney Jr., MD [Physician] - Discharge Plan - Discharge Data Disposition: Home Health Service Condition at Discharge: Stable Discharge Diet: advance to your usual diet Activity: as per physical therapy, increase activity as tolerated Hygiene: keep area(s) dry Weight Bearing at Discharge: weight bear as tolerated - Discharge Medications Continue Levothyroxine Tab [Synthroid Tab] 100 mcg PO QAM sitaGLIPtin [Januvia] 100 mg PO QAM Atorvastatin [Lipitor] 40 mg PO BEDTIME #30 tablet Magnesium Oxide 400 mg PO BID tablet Sotalol [Betapace] 80 mg PO BID #180 tablet dilTIAZem HCl [Diltiazem ER (24 hr)] 120 mg PO DAILY Pantoprazole Tab [Protonix Tab] 40 mg PO BEDTIME Clopidogrel [Plavix] 75 mg PO DAILY Furosemide Tab [Lasix Tab] 40 mg PO DAILY Aspirin EC Tab 81 mg PO BEDTIME Insulin Regular, Human [NovoLIN R] 0 unit SUBCUT ACHS PRN PRN Reason: SLIDING SCALE cephALEXin [Keflex] 500 mg PO Q12HR Tramadol HCl [Tramadol Tab] 50 mg PO Q6H PRN PRN Reason: Pain Mirabegron [Myrbetriq] 25 mg PO BEDTIME Insulin Detemir [Levemir] 40 unit SUBCUT BEDTIME Ferrous Sulfate 325 mg PO BEDTIME Glimepiride 4 mg PO BID - Follow Up or Referral Follow Up: Andi Carney Jr., MD [Physician] - - Forms/Instructions Additional Discharge Instructions: Discharged home with home health daily wet-to -dry dressing left thigh. Continue home medications/ follow-up 10 days Exam - Constitutional Vitals: Period Temp Pulse Resp BP Sys/Petty Pulse Ox Last 24 Hr 97.1 F-98.8 F 60-67 16-20 108-128/48-64 93-99 Discharge Results Labs on day of discharge: Labs from last 24 hours 04/15/17 04/15/17 04/15/17 10:44 06:51 05:28 WBC RBC Hgb Hct MCV MCH MCHC RDW Plt Count MPV Neut % (Auto) Lymph % (Auto) Baxter % (Auto) Eos % (Auto) Baso % (Auto) Neut # (Auto) Lymph # (Auto) Baxter # (Auto) Eos # (Auto) Baso # (Auto) Immature Gran % Nucleated RBC % Immature Gran # Nucleated RBCs # Immature Plt Fraction Sodium 138 Potassium 3.2 L Chloride 98 Carbon Dioxide 36 H Anion Gap 7.2 BUN 13 Creatinine 0.90 GFR Calculation 64 BUN/Creatinine Ratio 14.00 Glucose 108 H POC Glucose 214 H 101 Calculated Osmolality 275.7 Calcium 9.0 Phosphorus 3.8 Magnesium 2.0 Total Bilirubin 1.50 H AST 5 ALT 10 L Alkaline Phosphatase 58 Total Protein 6.5 Albumin 2.8 L Globulin 3.7 H Albumin/Globulin Ratio 0.7 L 04/15/17 04/14/17 04/14/17 05:28 21:12 15:50 WBC 8.8 RBC 3.52 L Hgb 9.9 L Hct 29.4 L MCV 83.5 L MCH 28 MCHC 33.7 RDW 14.1 Plt Count 138 MPV 10.6 Neut % (Auto) 73.7 Lymph % (Auto) 15.5 L Baxter % (Auto) 8.0 Eos % (Auto) 1.5 Baso % (Auto) 0.7 Neut # (Auto) 6.5 Lymph # (Auto) 1.4 Baxter # (Auto) 0.7 Eos # (Auto) 0.1 Baso # (Auto) 0.1 Immature Gran % 0.6 Nucleated RBC % 0.0 Immature Gran # 0.05 Nucleated RBCs # 0.00 Immature Plt Fraction 0.0 Sodium Potassium Chloride Carbon Dioxide Anion Gap BUN Creatinine GFR Calculation BUN/Creatinine Ratio Glucose POC Glucose 251 H 195 H Calculated Osmolality Calcium Phosphorus Magnesium Total Bilirubin AST ALT Alkaline Phosphatase Total Protein Albumin Globulin Albumin/Globulin Ratio DS: Provider Date of admission: 04/12/17 14:39 Primary care physician: Santana Calles MD Attending physician on admission: Andi Carney Jr., MD Consults: 04/12/17 14:39 Consult to Physical Therapy [CONS] Routine Reason for Physical Therapy: Evaluate and Treat Consult Comment: Weight-bear as tolerated 04/12/17 14:42 Consult to Case Mgmt/Social Srvs [CONS] Routine Reason for Case Mgmt/Social Srvs: Home Health Rehab Equipment 04/12/17 14:44 Consult to Wound Care - [place] [CONS] Routine Reason for Wound Care: Wound Care Management Consult Comment: Wet-to-dry 04/12/17 14:46 Consult to Physician [CONS] Routine Comment: 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
== END 2017-04-15 14:28 | disposition home health service (06) | DRG 572 ==
LOC: N.OR 12:40 → N.SDSINP 12:45 → N.3E 15:25
PROVIDERS: ADMIT Orthopaedic Surgery; ATTEND Orthopaedic Surgery